=== PATIENT | female | born 1950 | race Caucasian/White ===

== ENCOUNTER 2016-12-04 20:06 | Inpatient (IN) | payer MEDICARE, MEDICAID ==
[~2016-12-04] VITALS: Ht 165.1 cm; Wt 100.0 kg
--- NOTE | ~2016-12-04 | HEMODYNAMI ---
PATIENT:KALEB TERRAZAS MEDICAL RECORD: [id number] : 48 LOCATION:[facility] D.2102 ADMISSION DATE: 12/04/16 Generatedon:12/06/201613:09 Patient name: KALEB TERRAZAS Patient #: [id number] SSN: : 1950 Date of study: 12/06/2016 Page: Of Hemodynamic Procedure Report Patient Data Patient Demographics Procedure consent was obtained First Name: KALEB Gender: Female Last Name: NINI : 1950 Patient #: [id number] Age: 66 year(s) Race: Additional ID: [id number] Contact details [address]: [address] [place] [address] State: [place] City: [place] Zip code: [address] Past Medical History History of disease Date Diagnosis Comments Diabetes Allergies Allergen Reaction Date Comments Reported Penicillins 07/21/2015 Other allergy 07/21/2015 Carisoprodol, oxycodone, acetaminophen Morphine 07/21/2015 Admission Admission Data Admission Date: 12/04/2016 Admission Time: 22:35 Room #: D.2102 Lab Results Lab Result Date: 12/06/2016 Lab Result Time: 0:00 Biochemistry Name Units Result Min Max BUN mg/dl 13 --(--*-)-- 7 18 Creatinine mg/dl 0.9 --(-*--)-- 0.6 1.3 CBC Name Units Result Min Max Hemoglobin g/dl 13.3 -*(----)-- 13.5 17.5 Procedure Procedure Types Cath Procedure Diagnostic Procedure LHC LHC w/Coronaries PCI Procedure Coronary Stent Initial Miscellaneous Procedures Moderate Sedation up to 15 minutes Peripheral Cath Diagnostic Procedure Cath Peripheral Four Vessel Arteriogram Procedure Description Procedure Date Procedure Date: 12/06/2016 Procedure Start Time: 12:50 Procedure End Time: 13:08 Procedure Staff Name Function Alan Brown MD Performing Physician Rosalia Sevilla RN Nurse Dennis Camacho RT Monitor Florin Jaquez RT Scrub Procedure Data Cath Procedure Fluoroscopy Diagnostic fluoroscopy Total fluoroscopy Time: 2.3 time: 2.3 min min Diagnostic fluoroscopy Total fluoroscopy dose: 623 dose: 623 mGy mGy Contrast Material Contrast Material Type Amount (ml) Isovue 300 123 Entry Location Entry Primary Successful Side Size Upsize Upsize Entry Closure Succes sful Closure Location (Fr) 1 (Fr) 2 (Fr) Remarks Device Remarks Femoral Right 5 Fr 6 Fr Exoseal artery Short Estimated blood loss: 10 ml Diagnostic catheters Device Type Used For End Catheter Placement Cordis 5Fr Pigtail Procedure Catheter (MP) Cordis 5Fr JL 4.0 Procedure Catheter (MP) Cordis 5Fr 3DRC Catheter Procedure (MP) Procedure Complications No complications Procedure Medications Medication Administration Route Dosage Oxygen NC 2 l/min Heparin Flush Bag added to field 2 bags (1000units/500ml NS) Lidocaine 2% added to field 20 Versed I.V. 1 mg Fentanyl I.V. 50 mcg Versed I.V. 1 mg Fentanyl I.V. 50 mcg Heparin Bolus I.V. 4000 units Integrilin (Bolus I.V. 9 ml 2mg/ml) Versed I.V. 0.5 mg Fentanyl I.V. 50 mcg Plavix P.O. 600 mg Hemodynamics Rest HGB: 13.3 (g/dl) Heart Rate: 0 (bpm) Pressure Samples Time Site Value (mmHg) Purpose Heart Use Rate(bpm) 12:52 AO 93/78(85) Snapshot 82 Snapshots Pre Cath Intra NCS Post Cath Vital Signs Time Heart Resp SPO2 NIBP (mmHg) Rhythm Pain Sedation Rate (ipm) (%) Status Level (bpm) 12:24:10 65 16 98 130/70(104) NSR 0 (11) 10(A) , No pain 12:28:30 67 16 97 125/69(96) NSR 0 (11) 10(A) , No pain 12:32:52 76 16 96 123/69(95) NSR 0 (11) 10(A) , No pain 12:37:16 77 16 96 122/63(100) NSR 0 (11) 10(A) , No pain 12:41:28 77 17 95 131/84(108) NSR 0 (11) 10(A) , No pain 12:45:44 76 16 96 119/87(113) NSR 0 (11) 10(A) , No pain 12:49:56 79 15 96 125/97(118) NSR 0 (11) 10(A) , No pain 12:54:10 76 16 96 136/93(104) NSR 0 (11) 9(A) , No pain 12:58:30 82 16 96 134/91(101) NSR 0 (11) 9(A) , No pain 13:02:55 82 16 96 128/73(100) NSR 0 (11) 9(A) , No pain 13:05:26 80 14 96 126/66(95) NSR 0 (11) 10(A) , No pain Medications Time Medication Route Dose Verified Delivered Reason Notes Effectiveness by by 12:25:09 Oxygen NC 2 Alan Rosalia Per physician l/min Stephanie Sevilla RN 12:25:20 Heparin Flush added 2 Alan Alan used for Bag to bags Stephanie Brown MD procedure (1000units/500ml field NS) 12:25:26 Lidocaine 2% added 20ml Alan Alan used for to vial Stephanie Brown MD procedure field 12:48:39 Versed I.V. 1 mg Alan Rosalia for sedation Stephanie Sevilla RN 12:48:55 Fentanyl I.V. 50 Alan Rosalia for sedation mcg Stephanie Sevilla RN 12:50:42 Versed I.V. 1 mg Alan Rosalia for sedation Stephanie Sevilla RN 12:50:45 Fentanyl I.V. 50 Alan Rosalia for sedation mcg Stephanie Sevilla RN 12:53:31 Versed I.V. 0.5 Alan Rosalia for sedation mg Stephanie Sevilla RN 12:53:47 Fentanyl I.V. 50 Alan Rosalia for sedation mcg Stephanie Sevilla RN 12:56:43 Heparin Bolus I.V. 4000 Alan Rosalia for dose units Stephanie Sevilla RN anticoagulation verified wt dr brown 12:58:33 Integrilin I.V. 9 ml Alan Rosalia for wasted (Bolus 2mg/ml) Stephanie Sevilla RN antiplatelet 1ml therapy 13:08:00 Plavix P.O. 600 Alan Rosalia for mg Stephanie Sevilla RN antiplatelet therapy Procedure Log Time Note 11:50:41 Florin Jaquez RT(R) sent for patient. Start room use. 12:02:42 Time tracking: Regular hours 12:02:46 Plan of Care:Hemodynamics will remain stable., Cardiac rhythm will remain stable., Comfort level will be maintained., Respiratory function will remain adequate., Patient/ family verbilizes understanding of procedure., Procedure tolerated without complication., Recovers from procedure without complications.. 12:18:39 Patient received from PCU to CCL 2 Alert and oriented. Tansferred to table in Supine position. 12:18:45 Warm blankets applied, and butch hugger turned on for patient comfort. 12:18:45 Correct patient and procedure confirmed by team. 12:18:46 Signed procedure consent form obtained from patient. 12:18:47 ECG and BP/O2 sat monitors applied to patient. 12:22:50 Vital chart was started 12:22:51 Baseline sample Acquired. 12:22:56 Rhythm: sinus rhythm 12:22:58 Full Disclosure recording started 12:25:09 Oxygen 2 l/min NC was administered by Rosalia Sevilla RN; Per physician; 12:25:20 Heparin Flush Bag (1000units/500ml NS) 2 bags added to field was administered by Alan Brown MD; used for procedure; 12:25:26 Lidocaine 2% 20ml vial added to field was administered by Alan Brown MD; used for procedure; 12:27:22 Baseline sample Acquired. 12:27:30 H&P Date Dictated: 12/04/2016 Within 30 days and on chart., ER History on chart.. 12:27:31 Pre-procedure instructions explained to patient. 12:27:31 Pre-op teaching completed and patient verbalized understanding. 12:27:32 Family in waiting room. 12:27:33 Patient NPO since Midnight. 12:28:20 Is the patient allergic to Iodine/contrast media? No. 12:28:29 Is patient on blood thinner?No 12:28:31 Patient diabetic? Yes. 12:28:32 If diabetic: On Metformin? No 12:28:36 Patient not . Patient is over age 55. 12:28:39 Previous problem with sedation/anesthesia? Yes lowers blood pressure 12:28:43 Snore? Yes 12:28:44 Sleep apnea? Yes 12:28:46 Deviated septum? No 12:28:46 Opens mouth fully? Yes 12:28:47 Sticks out tongue? Yes 12:28:50 Airway obstruction? No ? 12:28:53 Dentures? No ? 12:28:56 Pre procedure: right dorsailis pedis pulse 1+ Palpable, but thready & weak; easily obliterated 12:28:58 Patient pain scale 0/10 ?. 12:29:22 IV patent on arrival in right hand with 0.9% NaCl at [facility]. 12:29:24 Lab results completed and on chart. 12::27 Right groin area was prepped with chlora-prep and draped in sterile fashion 12::28 Pt's abdomen was taped back for access to right groin. When taping abdomen back it was noticed the pt had a small skin tear. As the pt was being prepped and scrubbed, she complained about stinging and burning at site of skin tear on right groin. 12:29:33 Alarms reviewed by R. N. 12:29:33 Sharps counted by scrub and verified by R.N. 12:29:37 Use device set Femoral Dx 12:29:38 Tegaderm 4 x 4 opened to sterile field. 12:29:39 Acist Hand Control opened to sterile field. 12:29:39 Acist Manifold opened to sterile field. 12:29:40 Acist Syringe opened to sterile field. 12:29:41 Bag Decanter opened to sterile field. 12:29:41 Medline Cath Pack opened to sterile field. 12:29:41 Terumo 5Fr Sunflower Sheath opened to sterile field. 12:29:42 St Sonny 260cm J .035 wire opened to sterile field. 12:29:43 Diagnostic Infinity 5Fr Multipack catheter opened to sterile field. 12:30:27 Lab Result : BUN 13 mg/dl 12:: Lab Result : Hemoglobin 13.3 g/dl 12:30:27 Lab Result : Creatinine 0.9 mg/dl 12:34:09 Physician paged 12:34:54 Zero performed for pressure channel P1 12:48:04 --------ALL STOP TIME OUT------ 12:48:05 Final Timeout: patient, procedure, and site verified with staff and physician. All members of the team are in agreement. 12:48:06 Right groin site verified by team. 12:48:11 Physical assessment completed. ASA score P 2 - A patient with mild systemic disease as per Alan Brown MD. 12:48:14 Sedation plan: IV Moderate Sedation Versed, Fentanyl 12:48:39 Versed 1 mg I.V. was administered by Rosalia Sevilla RN; for sedation; 12:48:55 Fentanyl 50 mcg I.V. was administered by Rosalia Sevilla RN; for sedation; 12:50:01 Procedure started. 12:50:10 Local anesthetic to right femoral artery with Lidocaine 2% by Alan Brown MD.INITIAL ACCESS ONLY 12:50:42 Versed 1 mg I.V. was administered by Rosalia Sevilla RN; for sedation; 12:50:43 A 5 Fr sheath was inserted into the Right Femoral artery 12:50:45 Fentanyl 50 mcg I.V. was administered by Rosalia Sevilla RN; for sedation; 12:50:52 A Cordis 5Fr Pigtail Catheter (MP) was advanced over the wire and used for Procedure. 12:51:24 LV angiography performed. 12:51:25 LV gram done using BARR 12:51:31 EF : 60 % 12:51:34 Injector settings: Ml/sec: 10, Volume: 20, 12:51:37 Catheter removed. 12:51:44 A Cordis 5Fr JL 4.0 Catheter (MP) was advanced over the wire and used for Procedure. 12:52:19 LCA angiography performed. 12:53:31 Versed 0.5 mg I.V. was administered by Rosalia Sevilla RN; for sedation; 12:53:47 Fentanyl 50 mcg I.V. was administered by Rosalia Sevilla RN; for sedation; 12:54:04 Catheter removed. 12:54:20 A Cordis 5Fr 3DRC Catheter (MP) was advanced over the wire and used for Procedure. 12:54:23 RCA angiography performed. 12:54:33 Right subclavian angiography performed 12:54:35 Left carotid angiography performed. 12:54:39 Left subclavian angiography performed 12:55:09 Seesawtronic Launcher 6Fr 3DRC SH guide catheter opened to sterile field. 12:55:10 Terumo 6Fr Sunflower Sheath opened to sterile field. 12:55:10 OX FACTORY Whisper J 300cm 0.014 guide wire opened to sterile field. 12:55:11 USB Promos BasixCompak Inflation Kit opened to sterile field. 12:55:19 Catheter removed. 12:55:26 Sheath upsized to a 6 Fr Short. 12:55:34 ACC PCI Site: pRCA has 80% stenosis. 12:55:39 ACC Pre-intervention VELIA Flow is 3. 12:56:43 Heparin Bolus 4000 units I.V. was administered by Rosalia Sevilla RN; for anticoagulation; dose verified wtih dr brown 12:56:59 6 Fr 3DRC SH guide catheter was inserted over the wire 12:57:23 Whisper wire advanced. 12:58:01 Wire advanced across lesion. 12:58:33 Integrilin (Bolus 2mg/ml) 9 ml I.V. was administered by Rosalia Sevilla RN; for antiplatelet therapy; wasted 1ml 12:58:36 Inflation Number: 1 A Seesawtronic Resolute 3.0 X 15 stent was prepped and advanced across the Prox RCA. The stent was deployed at 11 NICOLE for 0:10 (min:sec). 12:59:27 ACC Post-intervention VELIA Flow is 3. 12:59:29 Stent catheter was removed intact over wire. 12:59:29 Wire removed. 12:59:30 Guide catheter removed. 12:59:39 Cordis 6Fr Exoseal opened to sterile field. 13:00:07 Sheath removed intact; hemostasis achieved with Exoseal to the Right Femoral artery. 13:00:08 Procedure ended.(Physican Out) 13:04:52 Fluoroscopy time 02.30 minutes. 13:05:04 Flurop Dose total: 623 13:05:04 Fluoroscopy dose: 623 mGy 13:05:08 Contrast amount:Isovue 300 123ml. 13:05:10 Sharps counted by scrub and verified by R.N. 13:05:11 Insertion/operative site no bleeding no hematoma. 13:05:16 Post-op/insertion site Right Femoral artery dressed using a 4 x 4 and Tegaderm. 13:05:46 Before tegaderm was placed, a 4x4 was placed to cover skin tear. 13:05:48 Post Procedure Pulses reassessed and unchanged 13:05:51 Post-procedure physical assessment completed. ASA score P 2 - A patient with mild systemic disease as per Alan Brown MD. 13:05:53 Post procedure rhythm: unchanged. 13:05:55 Estimated blood loss: 10 ml 13:05:57 Post procedure instruction explained to patient.Patient verbalizes understanding. 13:05:57 Patient needs reinforcement of post procedure teaching. 13:06:08 Procedure type changed to Cath procedure, Diagnostic procedure, LHC, LHC w/Coronaries, PCI procedure, Coronary Stent Initial, Miscellaneous Procedures, Moderate Sedation up to 15 minutes, Peripheral Cath Diagnostic Procedure, Cath Peripheral, Four Vessel Arteriogram 13:06:11 Procedure Complication : No complications 13:06:42 Procedure and supply charges have been captured, reviewed, submitted and are correct. 13:08:00 Plavix 600 mg P.O. was administered by Rosalia Sevilla RN; for antiplatelet therapy; 13:08:27 Vital chart was stopped 13:08:28 See physician's report for complete and final results. 13:08:35 Report given to PCU. 13:08:39 Patient transfered to PCU with Bed. 13:08:40 Procedure ended. 13:08:40 Full Disclosure recording stopped 13:08:47 End room use (Document Last) Intervention Summary Intervention Notes Time ActionType Lesion and Equipment Action# Pressure Duration Attributes Used 12:58:36 Place stent Prox RCA Medtronic 1 11 00:10 Resolute 3.0 X 15 stent Device Usage Item Name Manufacture Quantity Catalog Hospital Part Current Minimal Lot# / Number Charge Number Stock Stock Serial# Code Tegaderm 4 1 1626W [id number] [id number] 197950 5 x 4 Acist Hand Acist 1 62247 035360 573268 712830 5 Control Medical Systems Inc Acist Acist 1 34917 797892 144022 202875 5 Manifold Medical Systems Inc Acist Acist 1 11141 266578 309249 894517 20 Syringe Medical Systems Inc Bag Microtek 1 2002S 972573 60448 402342 5 Decanter Medical Inc. Medline Cardinal 1 [id number] 005447 66190 038090 5 Solarmass Terumo 5Fr Terumo 1 OPV040 988346 207184 251861 [address] Son[address] St Sonny 1 700696 132595 595218 230497 30 260cm J .035 wire Diagnostic Cardinal 1 [id number] 569296 76206 332357 30 Infinity Health 5Fr Multipack catheter Cordis 5Fr Cardinal 1 236394 5 Pigtail Health Catheter (MP) Cordis 5Fr Cardinal 1 618944 5 JL 4.0 Health Catheter (MP) Cordis 5Fr Cardinal 1 805316 5 3DRC Health Catheter (MP) Medtronic Medtronic 1 [id number] 339214 623503 152529 1 Launcher 6Fr 3DRC SH guide catheter Terumo 6Fr Terumo 1 [id number] 054647 366269 378819 40 Sunflower Sheath Gregory Gregory 1 [id number] 650360 096197 780668 5 Whisper J Vascular 300cm [address] [facility] 1 [id number] 458395 619787 913261 15 [facility] Medical Inflation Kit Medtronic Medtronic 1 [id number] 258787 385772 3 [id number] Resolute 3.0 X 15 stent Cordis 6Fr Cardinal 1 EX600 919017 927798 012780 10 BlastRoots Signature Audit Hamer Stage Time Signature Unsigned Intra-Procedure 12/06/2016 Dennis Camacho 1:09:08 PM RT(R) Signatures Monitor : Dennis Camacho RT Signature : Date : Time : [address] [place] [address]
[~2016-12-04 20:06] MED LIST: ALLEGRA-D1 TAB.SR1; BAYER CHEWABLE81 MG PO; FLEXERIL10 MG PO; JANUVIA100 MG PO; METAMUCIL FIB1 WAFER PO; MIRALAX17 GM PO; NORCO 10/325 TA1 TA1 PO; PLAVIX75 MG PO; PROTONIX20 MG PO; REGLAN5 MG PO; VICODIN 5/500 T1 TAB PO; VICTOZA0.6 MG/0.1 SQ; XANAX0.25 MG PO
[2016-12-04 20:47] LABS: BASOPHILS 0.2 % (0-2); EOSINOPHILS 1.5 % (0-7); HEMATOCRIT 42.6 % (36.0-48.0); HEMOGLOBIN 13.6 g/dL (12-16); IMMATURE GRANULOCYTES 0.5 % (0-5); LYMPHOCYTES 27.1 % (15-50); MCH 29.6 pg (26.0-34.0); MCHC 31.9 g/dL (31.0-37.0); MCV 92.8 fL (80.0-100.0); MEAN PLATELET VOLUME 10.9 fL (7.4-10.4); MONOCYTES 4.9 % (2-11); NEUTROPHILS 65.8 % (40-80); PLATELET COUNT 311 10x3/uL (130-400); RBC 4.59 10x6/uL (4.00-5.40); RDW 13.7 % (11.5-14.5); WBC 10.3 10x3/uL (4.8-10.8)
[2016-12-04 20:59] LABS: ALBUMIN 3.4 g/dL (3.4-5.0); ALKALINE PHOSPHATASE 112 U/L (46-116); ALT (SGPT) 15 U/L (10-68); BILIRUBIN - TOTAL 0.11 mg/dL (0.2-1.3); CALC OSMOLALITY 283 mosm/kg (275-300); CALCIUM 8.7 mg/dL (8.5-10.1); CARBON DIOXIDE 22.7 mmol/L (21.0-32.0); CHLORIDE - SERUM 105 mmol/L (98-107); CREATININE - SERUM 0.8 mg/dL (0.6-1.3); GLUCOSE 164 mg/dL (74-106); PROTEIN - SERUM 7.1 g/dL (6.4-8.2); SODIUM 140 mmol/L (136-145); UREA NITROGEN 15 mg/dL (7-18); eGFR NON AFRICAN AMERICAN 76 mL/min (90-120)
[2016-12-04 21:02] LABS: APPEARANCE CLEAR (CLEAR); BILIRUBIN NEGATIVE (NEGATIVE); COLOR YELLOW (YELLOW); GLUCOSE 100 mg/dL (NEGATIVE); KETONE NEGATIVE (NEGATIVE); LEUKOCYTE ESTERASE NEGATIVE (NEGATIVE); NITRITE NEGATIVE (NEGATIVE); PROTEIN NEGATIVE (NEGATIVE); SPECIFIC GRAVITY 1.015 (1.005-1.020); UROBILINOGEN NORMAL (NORMAL)
[2016-12-04 21:03] LABS: CREATINE KINASE 45 UL (21-215)
[2016-12-04 21:05] LABS: TROPONIN-I < 0.017 ng/mL (0.000-0.060)
[2016-12-04 23:31] VITALS: BP 140/63; Ht 165.1 cm; Wt 100.0 kg
[2016-12-04] MEDS ORDERED: PROTONIX40 MG PO (23:45)
[2016-12-04] MEDS ORDERED: PROBIOTIC1 EAC1 PO (23:47)
[2016-12-05 04:00] VITALS: BP 119/61
[2016-12-05] MEDS ORDERED: ACETAMINOPHEN325 MG PO (05:37)
[2016-12-05 05:45] LABS: BASOPHILS 0.2 % (0-2); EOSINOPHILS 2.1 % (0-7); HEMOGLOBIN 13.4 g/dL (12-16); IMMATURE GRANULOCYTES 0.2 % (0-5); LYMPHOCYTES 36.8 % (15-50); MCH 29.2 pg (26.0-34.0); MCHC 31.9 g/dL (31.0-37.0); MCV 91.5 fL (80.0-100.0); MEAN PLATELET VOLUME 10.7 fL (7.4-10.4); MONOCYTES 5.4 % (2-11); NEUTROPHILS 55.3 % (40-80); PLATELET COUNT 324 10x3/uL (130-400); RBC 4.59 10x6/uL (4.00-5.40); RDW 13.5 % (11.5-14.5); WBC 9.8 10x3/uL (4.8-10.8)
[2016-12-05 06:07] LABS: CALC OSMOLALITY 282 mosm/kg (275-300); CALCIUM 8.7 mg/dL (8.5-10.1); CARBON DIOXIDE 25.9 mmol/L (21.0-32.0); CHLORIDE - SERUM 106 mmol/L (98-107); CREATINE KINASE 42 UL (21-215); CREATININE - SERUM 0.8 mg/dL (0.6-1.3); GLUCOSE 135 mg/dL (74-106); POTASSIUM - SERUM 3.7 mmol/L (3.5-5.1); SODIUM 141 mmol/L (136-145); TROPONIN-I < 0.017 ng/mL (0.000-0.060); UREA NITROGEN 13 mg/dL (7-18); eGFR NON AFRICAN AMERICAN 76 mL/min (90-120)
[2016-12-05 09:30] VITALS: BP 134/64
[2016-12-05 12:23] VITALS: BP 144/68
[2016-12-05 14:12] LABS: CKMB 0.4 U/L (0.0-3.6); CREATINE KINASE 36 UL (21-215); TROPONIN-I < 0.017 ng/mL (0.000-0.060)
[2016-12-05 17:06] VITALS: BP 139/59
[2016-12-05 19:36] LABS: CKMB 0.4 U/L (0.0-3.6); CREATINE KINASE 39 UL (21-215)
[2016-12-05 19:39] LABS: TROPONIN-I < 0.017 ng/mL (0.000-0.060)
[2016-12-05 20:33] VITALS: BP 142/71
[2016-12-06 01:51] VITALS: BP 136/67
[2016-12-06 02:16] LABS: CKMB 0.3 U/L (0.0-3.6); CREATINE KINASE 35 UL (21-215); TROPONIN-I < 0.017 ng/mL (0.000-0.060)
[2016-12-06 05:17] LABS: BASOPHILS 0.4 % (0-2); EOSINOPHILS 2.1 % (0-7); HEMATOCRIT 42.2 % (36.0-48.0); HEMOGLOBIN 13.3 g/dL (12-16); IMMATURE GRANULOCYTES 0.4 % (0-5); LYMPHOCYTES 43.7 % (15-50); MCH 29.2 pg (26.0-34.0); MCHC 31.5 g/dL (31.0-37.0); MCV 92.7 fL (80.0-100.0); MEAN PLATELET VOLUME 11.3 fL (7.4-10.4); MONOCYTES 5.8 % (2-11); NEUTROPHILS 47.6 % (40-80); PLATELET COUNT 305 10x3/uL (130-400); RBC 4.55 10x6/uL (4.00-5.40); RDW 13.6 % (11.5-14.5); WBC 8.2 10x3/uL (4.8-10.8)
[2016-12-06 05:24] LABS: ANION GAP 13.7 mmol/L (8-16); CALCIUM 8.7 mg/dL (8.5-10.1); CARBON DIOXIDE 25.9 mmol/L (21.0-32.0); CREATININE - SERUM 0.9 mg/dL (0.6-1.3); POTASSIUM - SERUM 3.6 mmol/L (3.5-5.1)
[2016-12-06 05:48] VITALS: BP 133/70
[2016-12-06 08:00] VITALS: BP 139/71
[2016-12-06 12:00] VITALS: BP 116/56
[2016-12-06 16:00] VITALS: BP 154/78
[2016-12-06] MEDS ORDERED: PLAVIX75 MG PO (16:58)
--- NOTE | 2016-12-07 11:31 | OP ---
PATIENT NAME: KALEB TERRAZAS MEDICAL RECORD: [id number] :48 LOCATION:D.M2 D.2102 ADMISSION DATE:12/04/16 SURGEON: BERNARDA NASSAR MD DATE OF OPERATION: 12/06/2016 PROCEDURES: 1. PTCA stent RCA. 2. Left heart catheterization. 3. Selective coronary angiography. 4. Left ventriculogram. 5. Four-vessel carotid and vertebral angiography. INDICATIONS: Angina, coronary artery disease, syncope. PROCEDURE IN DETAIL: After informed consent was obtained and after detailed explanation of risks, benefits as well as alternative therapies, the patient elected to proceed with angiogram and angioplasty. The right femoral area was prepped and draped in normal sterile fashion. The right femoral artery was cannulated via modified Seldinger technique with placement of 6-Prydeinig sheath. All catheters exchanged through this sheath. FINDINGS: There was subselection of each subclavian as well as the left carotid. RIGHT SIDE: The common internal and external carotids have mild plaquing, no flow-limiting stenosis. Vertebral arteries devoid of disease. LEFT SYSTEM: The common internal and external carotids have mild plaquing, no flow-limiting stenosis. Vertebral arteries devoid of disease. Left ventriculogram was performed in standard 30-degree BARR view, reveals good cardiac wall motion throughout all segments. Overall ejection fraction is 60%. SELECTIVE CORONARY ANGIOGRAPHY. 1. Left main showed no significant angiographic disease. 2. Left anterior descending has previously placed stent that is widely patent with no significant restenosis. No disease elsewise throughout the LAD or its branches. 3. Left circumflex has mild irregularities, but no flow-limiting stenosis. 4. Right coronary has 80% stenosis with pressure damping at the ostium. PTCA STENT OF THE RIGHT CORONARY OSTIUM: The stent used is a 3.0 x 15 mm Resolute. Result was 0% residual stenosis. OVERALL IMPRESSION: Successful percutaneous transluminal coronary angioplasty stent of the right coronary artery going from greater than 80% initial stenosis with severe pressure damping to 0% residual stenosis. TRANSINT:[id number] Voice Confirmation ID: [id number] DOCUMENT ID: [id number] OPERATIVE REPORT [id number] KALEB TERRAZAS BERNARDA NASSAR MD at 1134 CC: [id number] DICTATION DATE: 12/06/16 1307 SUPPLY CHAIN DEVELOPMENT MANAGER: 12/06/16 1700 DIS IN 12/06/16 [facility] [address] [facility] [place] [address]
--- NOTE | 2016-12-07 11:31 | EC ---
PATIENT:KALEB TERRAZAS DATE OF SERVICE: 12/04/16 SEX: F MEDICAL RECORD: [id number] DATE OF : [birth year] LOCATION:D.M2 D.210 AGE OF PATIENT: 66 ADMISSION DATE: 12/04/16 REFERRING PHYSICIAN: INTERPRETING PHYSICIAN: BERNARDA NASSAR MD ECHOCARDIOGRAM REPORT ECHO CHARGES 4 ECHO COMPLETE CLINICAL DIAGNOSIS: SYNCOPE ECHOCARDIOGRAPHIC MEASUREMENTS (adult normal given) AC root (d.<3.7cm) 3.5 LV Septum d (<1.2 cm> 1.4 Valve Excursion 1.8 LV Septum (systole) 1.7 Left Atria (s.<4.0cm> 3.4 LVPW d(<1.2cm) 1.5 RV (d.<2.3cm) 4.5 LVPW (sytole) 1.7 LV diastole(<5.6CM) 4. MV E-F(>70mm/sec) LV systole 2.7 LVOT Diameter 1.8 MV exc.(>10mm) 1.6 Est.ejection fraction (50-75%) Pericardial Effusion N DOPPLER: LVIT A 80.0 E 60.0 LA RVSP 28 LVOT 92 AOP1/2T Asc. Ao 159 RVOT 92 RA PA 109 AV Gradient Peak 10.17 AV Mean 4.64 AV Area 2.0 MV Gradient Peak 4.74 MV Mean 1.79 MV Area COMMENTS: Sand Caster: Oscar SAN Skip Hoist Operator:Elizabeth Carl TAPE# PACS DATE OF SERVICE: 12/06/2016 Echocardiogram FINDINGS: 1. Left ventricular chamber size is within normal limits. Left ventricular systolic function is normal. Overall ejection fraction estimated at 55%. 2. Left atrium is within normal limits at 3.4 cm. Right atrium and right ventricular chamber sizes are mildly dilated. 3. Valvular structures have normal structure and motion. ECHOCARDIOGRAM REPORT [id number] KALEB TERRAZAS 4. Doppler interrogation reveals mild mitral regurgitation, mild tricuspid regurgitation. No other valvular insufficiency or stenosis. Pulmonary systolic pressure is normal estimated at 28 mmHg. 5. No evidence of pericardial effusion or left ventricular thrombus. TRANSINT:[id number] Voice Confirmation ID: [id number] DOCUMENT ID: [id number] BERNARDA NASSAR MD at 6567 CC: [id number] DICTATION DATE: 12/06/16 1241 INSEMINATION WORKER: 12/06/16 1649 DIS IN 12/06/16 [facility] [address] [id number]
== END 2016-12-06 18:41 | disposition home or self-care (01) | DRG 247 ==
LOC: D.ER 20:06 → D.M2 22:35 → OBSVTIME 22:35 → D.M2 12-06 18:41
PROVIDERS: Family Medicine; Internal Medicine Interventional Cardiology; ADMIT Family Medicine
PROC: B2151ZZ Fluoroscopy of Left Heart using Low Osmolar Contrast (ICD-10-PCS; 2016-12-06)
PROC: B3181ZZ Fluoroscopy of Bilateral Internal Carotid Arteries using Low Osmolar Contrast (ICD-10-PCS; 2016-12-06)
PROC: B31G1ZZ Fluoroscopy of Bilateral Vertebral Arteries using Low Osmolar Contrast (ICD-10-PCS; 2016-12-06)
PROC: 027034Z Dilation of Coronary Artery, One Artery with Drug-eluting Intraluminal Device, Percutaneous Approach (ICD-10-PCS; principal; 2016-12-06 08:00)
PROC: 4A023N7 Measurement of Cardiac Sampling and Pressure, Left Heart, Percutaneous Approach (ICD-10-PCS; 2016-12-06 08:00)
PROC: B2111ZZ Fluoroscopy of Multiple Coronary Arteries using Low Osmolar Contrast (ICD-10-PCS; 2016-12-06 08:00)
DX: I25.119 Atherosclerotic heart disease of native coronary artery with unspecified angina pectoris (principal); F17.203 Nicotine dependence unspecified, with withdrawal; R55 Syncope and collapse; E11.65 Type 2 diabetes mellitus with hyperglycemia; K21.9 Gastro-esophageal reflux disease without esophagitis; Z95.5 Presence of coronary angioplasty implant and graft

== ENCOUNTER 2017-06-18 23:12 | Emergency (ER) | payer MEDICARE, MEDICAID ==
[~2017-06-18 23:12] MED LIST changes: +ACETAMINOPHEN325 MG PO; +PROBIOTIC1 EAC1 PO; +PROTONIX40 MG PO
[2017-06-18 23:59] LABS: BASOPHILS 0.1 % (0-2); EOSINOPHILS 0.9 % (0-7); HEMATOCRIT 43.7 % (36.0-48.0); HEMOGLOBIN 14.4 g/dL (12-16); IMMATURE GRANULOCYTES 0.2 % (0-5); LYMPHOCYTES 14.1 % (15-50); MCH 29.6 pg (26.0-34.0); MCV 89.7 fL (80.0-100.0); MEAN PLATELET VOLUME 10.7 fL (7.4-10.4); MONOCYTES 6.6 % (2-11); NEUTROPHILS 78.1 % (40-80); PLATELET COUNT 298 10x3/uL (130-400); RBC 4.87 10x6/uL (4.00-5.40); RDW 13.8 % (11.5-14.5); WBC 14.5 10x3/uL (4.8-10.8)
[2017-06-19 00:16] LABS: ALBUMIN 3.7 g/dL (3.4-5.0); ALKALINE PHOSPHATASE 101 U/L (46-116); ALT (SGPT) 12 U/L (10-68); BILIRUBIN - TOTAL 0.14 mg/dL (0.2-1.3); CALC OSMOLALITY 281 mosm/kg (275-300); CALCIUM 8.7 mg/dL (8.5-10.1); CARBON DIOXIDE 21.3 mmol/L (21.0-32.0); CHLORIDE - SERUM 103 mmol/L (98-107); CREATININE - SERUM 0.9 mg/dL (0.6-1.3); GLUCOSE 180 mg/dL (74-106); PROTEIN - SERUM 7.7 g/dL (6.4-8.2); SODIUM 138 mmol/L (136-145); UREA NITROGEN 16 mg/dL (7-18); eGFR NON AFRICAN AMERICAN 66 mL/min (90-120)
[2017-06-19 00:28] LABS: CHOL - HDL RATIO 4.4 ratio (2.3-4.1); CHOLESTEROL, TOTAL 226 mg/dL (0-200); CKMB 0.4 U/L (0.0-3.6); CREATINE KINASE 52 UL (21-215); HDL CHOLESTEROL 52 mg/dL (32-96); LDL CHOLESTEROL 150 mg/dL (0-100); LDL-HDL RATIO 2.9 ratio (1.5-3.5); TRIGLYCERIDE 123 mg/dL (30-200)
[2017-06-19 00:31] LABS: TROPONIN-I < 0.017 ng/mL (0.000-0.060)
== END 2017-06-19 02:17 | disposition home or self-care (01) ==
LOC: D.ER 23:12
PROVIDERS: Emergency Medicine
DX: R07.89 Other chest pain (principal); I25.10 Atherosclerotic heart disease of native coronary artery without angina pectoris; E11.9 Type 2 diabetes mellitus without complications; F17.200 Nicotine dependence, unspecified, uncomplicated; I45.10 Unspecified right bundle-branch block

== ENCOUNTER 2018-04-17 19:50 | Inpatient (IN) | payer MEDICARE, MEDICAID ==
[~2018-04-17] VITALS: Ht 165.1 cm; Wt 96.2 kg
--- NOTE | ~2018-04-17 | MORECARE ---
CASE MANAGEMENT DISCHARGE SUMMARY PATIENT: KALEB TERRAZAS UNIT: [id number] ADM DATE: 04/18/18 AGE: 67 : 49 SEX: F ROOM/BED: D.2211 AUTHOR: TARA,DOC PHYSICIAN: REFERRING PHYSICIAN: MAYTE DELGADILLO MD DATE OF SERVICE: 04/23/18 Discharge Plan Patient Name: KALEB TERRAZAS Facility: [facility]:[place] : 1950 Planned Disposition: Home Anticipated Discharge Date: 04/21/18 Discharge Date: 04/21/2018 Expected LOS: 3 Initial Reviewer: [email or web address] Initial Review Date: 04/18/2018 Generated: 04/23/18 12:10 pm Comments DCP- Discharge Planning Updated by [email or web address]: Precious Odom on 04/21/18 2:[address] 1455 LATE ENTRY CM MET WITH THE PATIENT IS HER ROOM IT IS "". CM DISCUSSED DISCHARGE IMM. PATIENT STATED SHE UNDERSTOOD AND SIGNED IMM FORM. HER SISTER IS PROVIDING TRANSPORTATION TO HOME. SHE DECLINES ANY HOME HEALTH. 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 DENIES ANY DME. HAS A SHOWER CHAIR AND SAFETY BARS IN THE SHOWER. HER PCP IS DR WARREN. [facility] - [facility] [address] NO H/H OR COMMUNITY SERVICES. HAS 2 STEPS TO ENTER HER HOME WITH RAILING ON BOTH SIDES OF THE STEP. DENIES ANY NEED. SPOKE WITH PRIMARY NURSE AND CLINICAL COORDINATOR. DCPIA - Discharge Planning Initial Assessment Updated by [email or web address]: Precious Odom on 04/21/18 3:44 pm * Is the patient Alert and Oriented? Yes * How many steps to enter\\exit or inside your home? Two w/ ding * PCP DR Warren * [facility] [address] * Preadmission Environment Home Alone * ADLs Independent * Equipment None * Other Equipment N/A * List name and contact numbers for known caregivers / representatives who currently or will assist patient after discharge: ABIMBOLA DANIELSON- - [phone] * Community resources currently utilized None * Please name any agencies selected above. N/A * Additional services required to return to the preadmission environment? No * Can the patient safely return to the preadmission environment? Yes * Has this patient been hospitalized within the prior 30 days at any hospital? No Coverage Notice Reviewer: [email or web address] David EstradaPrecious Mesa Notice Issued Date-Time: 04/21/2018 15:15 Notice Type: IM Discharge Notice Notice Delivered To: Patient Relationship to Patient: Director Recreation Name: Delivery Method: HAND - Hand Delivered Genie Days: Prior Verbal Notification: Recipient Understood Notice: Yes Recipient Signature: Yes Med Rec Note Co-signed by Attending: Coverage Notice Comment: CM SPOKE WITH THE PATIENT. SHE SAID SHE UNDERSTOOD THE DISCHARGE IMM. SIGNED FORM. COPY TO THE PATIENT. HARD COPY TO THE CHART. Last DP export: 04/21/18 2:55 Patient Name: KALEB TERRAZAS Page [phone] at 1110 All edits/amendments must be made on the electronic document DICTATION DATE: 04/23/18 1110 MUSEUM ARCHIVIST: SHAHEED 04/23/18 1110 RPT#: [id number] DC DATE:04/21/18 STATUS: DIS IN [facility] [address] [place] [address] END OF REPORT
--- NOTE | ~2018-04-17 | MORECARE ---
CASE MANAGEMENT DISCHARGE SUMMARY PATIENT: KALEB TERRAZAS UNIT: [id number] ADM DATE: 04/18/18 AGE: 67 : [birth year] SEX: F ROOM/BED: D.2211 AUTHOR: KATALINA PACHECO PHYSICIAN: REFERRING PHYSICIAN: MAYTE DELGADILLO MD DATE OF SERVICE: 04/21/18 Discharge Plan Patient Name: KALEB TERRAZAS Facility: [facility]:[place] : 1950 Planned Disposition: Home Anticipated Discharge Date: 04/21/18 Discharge Date: Expected LOS: 3 Initial Reviewer: [email or web address] Initial Review Date: 04/18/2018 Generated: 04/21/18 4:42 pm Patient Name: KALEB TERRAZAS Page [phone] at 1542 All edits/amendments must be made on the electronic document DICTATION DATE: 04/21/181541 DATA ANALYST ETL DEVELOPER: SHAHEED 04/21/18 154 RPT#: [id number] DC DATE: STATUS: ADM IN [facility] [address] [place] [address] END OF REPORT
--- NOTE | ~2018-04-17 | MORECARE ---
CASE MANAGEMENT DISCHARGE SUMMARY PATIENT: KALEB TERRAZAS UNIT: [id number] ADM DATE: 04/18/18 AGE: 67 : 49 SEX: F ROOM/BED: D.2211 AUTHOR: TARADOC PHYSICIAN: REFERRING PHYSICIAN: MAYTE DELGADILLO MD DATE OF SERVICE: 04/21/18 Discharge Plan Patient Name: KALEB TERRAZAS Facility: [facility]:[place] : 1950 Planned Disposition: Home Anticipated Discharge Date: 04/21/18 Discharge Date: Expected LOS: 3 Initial Reviewer: [email or web address] Initial Review Date: 04/18/2018 Generated: 04/21/18 4:55 pm Comments DCP- Discharge Planning Updated by [email or web address]: Precious Odom on 04/21/18 2:[address] 1455 LATE ENTRY CM MET WITH THE PATIENT IS HER ROOM IT IS "". CM DISCUSSED DISCHARGE IMM. PATIENT STATED SHE UNDERSTOOD AND SIGNED IMM FORM. HER SISTER IS PROVIDING TRANSPORTATION TO HOME. SHE DECLINES ANY HOME HEALTH. 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 DENIES ANY DME. HAS A SHOWER CHAIR AND SAFETY BARS IN THE SHOWER. HER PCP IS DR WARREN. PHARMACY - [facility] [address] NO H/H OR COMMUNITY SERVICES. HAS 2 STEPS TO ENTER HER HOME WITH RAILING ON BOTH SIDES OF THE STEP. DENIES ANY NEED. SPOKE WITH PRIMARY NURSE AND CLINICAL COORDINATOR. DCPIA - Discharge Planning Initial Assessment Updated by [email or web address]: Precious Odom on 04/21/18 3:44 pm * Is the patient Alert and Oriented? Yes * How many steps to enter\\exit or inside your home? Two w/ ding * PCP DR Warren * Pharmacy [facility] on [address] * Preadmission Environment Home Alone * ADLs Independent * Equipment None * Other Equipment N/A * List name and contact numbers for known caregivers / representatives who currently or will assist patient after discharge: ABIMBOLA CANELA- [phone] * Community resources currently utilized None * Please name any agencies selected above. N/A * Additional services required to return to the preadmission environment? No * Can the patient safely return to the preadmission environment? Yes * Has this patient been hospitalized within the prior 30 days at any hospital? No Coverage Notice Reviewer: [email or web address] David Precious Odom Notice Issued Date-Time: 04/21/2018 15:15 Notice Type: IM Discharge Notice Notice Delivered To: Patient Relationship to Patient: Lead Atg Developer Name: Delivery Method: HAND - Hand Delivered Genie Days: Prior Verbal Notification: Recipient Understood Notice: Yes Recipient Signature: Yes Med Rec Note Co-signed by Attending: Coverage Notice Comment: CM SPOKE WITH THE PATIENT. SHE SAID SHE UNDERSTOOD THE DISCHARGE IMM. SIGNED FORM. COPY TO THE PATIENT. HARD COPY TO THE CHART. Last DP export: 04/21/18 2:49 Patient Name: KALEB TERRAZAS Page [id number] at 1555 All edits/amendments must be made on the electronic document DICTATION DATE: 04/21/18 1550 CELL COVERER: SHAHEED 04/21/18 1550 RPT#: [id number] DC DATE: STATUS: ADM IN [facility] [address] [place] [address] END OF REPORT
--- NOTE | ~2018-04-17 | MORECARE ---
CASE MANAGEMENT DISCHARGE SUMMARY PATIENT: KALEB TERRAZAS UNIT: [id number] ADM DATE: 04/18/18 AGE: 67 : 49 SEX: F ROOM/BED: D.2211 AUTHOR: KATALINA PACHECO PHYSICIAN: REFERRING PHYSICIAN: MAYTE DELGADILLO MD DATE OF SERVICE: 04/21/18 Discharge Plan Patient Name: KALEB TERRAZAS [facility] [facility] 1950 Planned Disposition: Home Anticipated Discharge Date: 04/21/18 Discharge Date: Expected LOS: 3 Initial Reviewer: [email or web address] Initial Review Date: 04/18/2018 Generated: 04/21/18 4:49 pm DCPIA - Discharge Planning Initial Assessment Updated by [email or web address]: Precious Odom on 04/21/18 3:44 pm * Is the patient Alert and Oriented? Yes * How many steps to enter\exit or inside your home? Two w/ ding * PCP DR Warren * Pharmacy [facility] * Preadmission Environment Home Alone * ADLs Independent * Equipment None * Other Equipment N/A * List name and contact numbers for known caregivers / representatives who currently or will assist patient after discharge: [facility] [phone] * Community resources currently utilized None * Please name any agencies selected above. N/A * Additional services required to return to the preadmission environment? No * Can the patient safely return to the preadmission environment? Yes * Has this patient been hospitalized within the prior 30 days at any hospital? No Last DP export: 04/21/18 2:42 Patient Name: KALEB TERRAZAS Page [id number] at 1549 All edits/amendments must be made on the electronic document DICTATION DATE: 04/21/181547 DATA ENTRY REPRESENTATIVE: SHAHEED 04/21/181547 RPT#: [id number] DC DATE: STATUS: ADM IN [facility] [address] [place] [address] END OF REPORT
[2018-04-17] MEDS ORDERED: GLUCOSAMINE HC500 MG PO (19:53)
[2018-04-17 20:40] LABS: HEMATOCRIT 48.2 % (36.0-48.0); HEMOGLOBIN 16.3 g/dL (12-16); MCH 30.9 pg (26.0-34.0); MCHC 33.8 g/dL (31.0-37.0); MCV 91.3 fL (80.0-100.0); MEAN PLATELET VOLUME 11.2 fL (7.4-10.4); PLATELET COUNT 347 10x3/uL (130-400); RBC 5.28 10x6/uL (4.00-5.40); RDW 13.8 % (11.5-14.5); WBC 23.2 10x3/uL (4.8-10.8)
[2018-04-17 20:57] LABS: APTT 25.3 SECONDS (22.8-39.4); INR 1.05 (0.85-1.17); PROTIME 13.3 SECONDS (11.6-15.0)
[2018-04-17 21:00] LABS: ALBUMIN 3.8 g/dL (3.4-5.0); ALKALINE PHOSPHATASE 105 U/L (46-116); ALT (SGPT) 14 U/L (10-68); BILIRUBIN - TOTAL 0.24 mg/dL (0.2-1.3); CALC OSMOLALITY 287 mosm/kg (275-300); CALCIUM 9.1 mg/dL (8.5-10.1); CHLORIDE - SERUM 105 mmol/L (98-107); CKMB 0.5 U/L (0.0-3.6); CREATINE KINASE 58 UL (21-215); GLUCOSE 218 mg/dL (74-106); POTASSIUM - SERUM 4.3 mmol/L (3.5-5.1); PROTEIN - SERUM 8.2 g/dL (6.4-8.2); SODIUM 140 mmol/L (136-145); UREA NITROGEN 19 mg/dL (7-18)
[2018-04-17 21:02] LABS: TROPONIN-I < 0.017 ng/mL (0.000-0.060)
[2018-04-17 21:07] LABS: CREATININE - SERUM 1.1 mg/dL (0.6-1.3); eGFR NON AFRICAN AMERICAN 52 mL/min (90-120)
[2018-04-17 21:36] LABS: LYMPHOCYTES 12 % (15-50); MONOCYTES 2 % (2-11); NEUTROPHILS 83 % (40-80); PLATELET ESTIMATE NORMAL
[2018-04-17 22:08] LABS: APPEARANCE CLEAR (CLEAR); BACTERIA NONE SEEN /hpf (NONE SEEN); BILIRUBIN NEGATIVE (NEGATIVE); COLOR YELLOW (YELLOW); EPITHELIAL CELLS NSEEN /hpf (0-5); GLUCOSE 1000 mg/dL (NEGATIVE); KETONE NEGATIVE (NEGATIVE); NITRITE NEGATIVE (NEGATIVE); PROTEIN NEGATIVE (NEGATIVE); RED CELLS - URINE NONE SEEN /hpf (0-5); SPECIFIC GRAVITY 1.015 (1.005-1.020); UROBILINOGEN NORMAL (NORMAL); WHITE CELLS - URINE NSEEN /hpf (0-5)
[2018-04-17 23:20] VITALS: BP 138/77
[2018-04-18 05:08] VITALS: BP 127/60; BMI 35.3
[2018-04-18 06:08] LABS: BASOPHILS 0.1 % (0-2); EOSINOPHILS 0.1 % (0-7); HEMATOCRIT 46.8 % (36.0-48.0); HEMOGLOBIN 15.3 g/dL (12-16); IMMATURE GRANULOCYTES 0.3 % (0-5); LYMPHOCYTES 4.3 % (15-50); MCH 30.4 pg (26.0-34.0); MCHC 32.7 g/dL (31.0-37.0); MEAN PLATELET VOLUME 11.3 fL (7.4-10.4); MONOCYTES 2.8 % (2-11); NEUTROPHILS 92.4 % (40-80); PLATELET COUNT 297 10x3/uL (130-400); RBC 5.03 10x6/uL (4.00-5.40)
[2018-04-18 06:26] LABS: WBC 15.1 10x3/uL (4.8-10.8)
[2018-04-18 06:39] LABS: ALBUMIN 3.2 g/dL (3.4-5.0); BILIRUBIN - TOTAL 0.22 mg/dL (0.2-1.3); CALCIUM 8.2 mg/dL (8.5-10.1); CARBON DIOXIDE 15.2 mmol/L (21.0-32.0); CREATININE - SERUM 0.9 mg/dL (0.6-1.3); POTASSIUM - SERUM 4.2 mmol/L (3.5-5.1); PROTEIN - SERUM 7.3 g/dL (6.4-8.2)
[2018-04-18 08:20] VITALS: BP 113/48
[2018-04-18 12:38] VITALS: BP 120/52
[2018-04-18 13:40] VITALS: Ht 165.1 cm; Wt 96.2 kg
[2018-04-18 17:06] VITALS: BP 118/50
[2018-04-18 20:29] VITALS: BP 113/52
[2018-04-19 05:12] VITALS: BP 124/60
[2018-04-19 05:18] VITALS: BP 118/54
[2018-04-19 05:59] LABS: BASOPHILS 0.1 % (0-2); EOSINOPHILS 0.9 % (0-7); HEMATOCRIT 40.4 % (36.0-48.0); HEMOGLOBIN 12.9 g/dL (12-16); IMMATURE GRANULOCYTES 0.2 % (0-5); LYMPHOCYTES 29.6 % (15-50); MCH 29.6 pg (26.0-34.0); MCHC 31.9 g/dL (31.0-37.0); MCV 92.7 fL (80.0-100.0); MONOCYTES 7.4 % (2-11); NEUTROPHILS 61.8 % (40-80); PLATELET COUNT 276 10x3/uL (130-400); RBC 4.36 10x6/uL (4.00-5.40)
[2018-04-19 06:18] LABS: ALBUMIN 2.8 g/dL (3.4-5.0); ALKALINE PHOSPHATASE 61 U/L (46-116); ALT (SGPT) 12 U/L (10-68); BILIRUBIN - TOTAL 0.16 mg/dL (0.2-1.3); CALC OSMOLALITY 282 mosm/kg (275-300); CALCIUM 7.9 mg/dL (8.5-10.1); CARBON DIOXIDE 24.9 mmol/L (21.0-32.0); CHLORIDE - SERUM 106 mmol/L (98-107); CREATININE - SERUM 0.8 mg/dL (0.6-1.3); GLUCOSE 174 mg/dL (74-106); PROTEIN - SERUM 6.2 g/dL (6.4-8.2); SODIUM 141 mmol/L (136-145); UREA NITROGEN 8 mg/dL (7-18); eGFR NON AFRICAN AMERICAN 75 mL/min (90-120)
[2018-04-19 06:19] LABS: WBC 9.4 10x3/uL (4.8-10.8)
[2018-04-19 08:45] VITALS: BP 138/66
[2018-04-19 12:45] VITALS: BP 121/53
[2018-04-19 20:00] VITALS: BP 163/82
[2018-04-20 04:00] VITALS: BP 146/76
[2018-04-20 05:09] LABS: BASOPHILS 0.2 % (0-2); EOSINOPHILS 1.6 % (0-7); HEMATOCRIT 37.2 % (36.0-48.0); HEMOGLOBIN 12.1 g/dL (12-16); IMMATURE GRANULOCYTES 0.2 % (0-5); LYMPHOCYTES 27.9 % (15-50); MCHC 32.5 g/dL (31.0-37.0); MCV 92.1 fL (80.0-100.0); MEAN PLATELET VOLUME 11.1 fL (7.4-10.4); MONOCYTES 8.9 % (2-11); NEUTROPHILS 61.2 % (40-80); PLATELET COUNT 236 10x3/uL (130-400); RBC 4.04 10x6/uL (4.00-5.40); RDW 13.7 % (11.5-14.5); WBC 9.8 10x3/uL (4.8-10.8)
[2018-04-20 05:30] LABS: ALBUMIN 2.5 g/dL (3.4-5.0); ALKALINE PHOSPHATASE 63 U/L (46-116); ALT (SGPT) 9 U/L (10-68); BILIRUBIN - TOTAL 0.22 mg/dL (0.2-1.3); CALC OSMOLALITY 279 mosm/kg (275-300); CALCIUM 7.8 mg/dL (8.5-10.1); CARBON DIOXIDE 25.6 mmol/L (21.0-32.0); CHLORIDE - SERUM 106 mmol/L (98-107); CREATININE - SERUM 0.6 mg/dL (0.6-1.3); GLUCOSE 156 mg/dL (74-106); POTASSIUM - SERUM 3.1 mmol/L (3.5-5.1); PROTEIN - SERUM 5.8 g/dL (6.4-8.2); SODIUM 140 mmol/L (136-145); UREA NITROGEN 6 mg/dL (7-18); eGFR NON AFRICAN AMERICAN > 90 mL/min (90-120)
[2018-04-20 09:12] VITALS: BP 162/70
[2018-04-20 13:46] VITALS: BP 158/71
[2018-04-20 16:49] VITALS: BP 141/71
[2018-04-20 20:00] VITALS: BP 134/53
[2018-04-21 04:00] VITALS: BP 147/63
[2018-04-21 05:05] LABS: BASOPHILS 0.2 % (0-2); EOSINOPHILS 4.2 % (0-7); IMMATURE GRANULOCYTES 0.4 % (0-5); LYMPHOCYTES 32.4 % (15-50); MCH 29.4 pg (26.0-34.0); MCHC 32.4 g/dL (31.0-37.0); MCV 90.9 fL (80.0-100.0); MEAN PLATELET VOLUME 10.6 fL (7.4-10.4); MONOCYTES 6.4 % (2-11); NEUTROPHILS 56.4 % (40-80); PLATELET COUNT 219 10x3/uL (130-400); RBC 3.74 10x6/uL (4.00-5.40); RDW 13.4 % (11.5-14.5); WBC 8.3 10x3/uL (4.8-10.8)
[2018-04-21 05:32] LABS: ALBUMIN 2.4 g/dL (3.4-5.0); ALKALINE PHOSPHATASE 61 U/L (46-116); ALT (SGPT) 11 U/L (10-68); BILIRUBIN - TOTAL 0.17 mg/dL (0.2-1.3); CALC OSMOLALITY 281 mosm/kg (275-300); CALCIUM 7.8 mg/dL (8.5-10.1); CARBON DIOXIDE 24.8 mmol/L (21.0-32.0); CHLORIDE - SERUM 108 mmol/L (98-107); CREATININE - SERUM 0.6 mg/dL (0.6-1.3); GLUCOSE 171 mg/dL (74-106); POTASSIUM - SERUM 3.1 mmol/L (3.5-5.1); PROTEIN - SERUM 5.4 g/dL (6.4-8.2); SODIUM 141 mmol/L (136-145); UREA NITROGEN 5 mg/dL (7-18); eGFR NON AFRICAN AMERICAN > 90 mL/min (90-120)
[2018-04-21 07:25] LABS: HIV 1 & 2- RAPID SCREEN NEGATIVE (NEGATIVE)
[2018-04-21 12:33] VITALS: BP 152/73
[2018-04-21] MEDS ORDERED: FLAGYL500 MG PO (13:25)
[2018-04-21] MEDS ORDERED: LEVAQUIN750 MG PO (13:26)
[2018-04-21 17:34] VITALS: BP 126/74
[2018-04-24 03:12] LABS: HEPATITIS C ANTIBODY <0.1 (0.0-0.9)
[2018-04-24 14:17] LABS: HCVGENO - HEP C QUANT HCV Not Detected IU/mL (())
== END 2018-04-21 17:30 | disposition home or self-care (01) | DRG 389 ==
LOC: D.ER 19:50 → OBSVTIME 04-18 03:05 → D.MS 04-18 03:05
PROVIDERS: Family Medicine; Internal Medicine Nephrology
PROC: 0D9670Z Drainage of Stomach with Drainage Device, Via Natural or Artificial Opening (ICD-10-PCS; principal; 2018-04-18)
DX: K56.609 Unspecified intestinal obstruction, unspecified as to partial versus complete obstruction (principal); F17.213 Nicotine dependence, cigarettes, with withdrawal; E87.2 Acidosis; K52.9 Noninfective gastroenteritis and colitis, unspecified; E11.9 Type 2 diabetes mellitus without complications; K21.9 Gastro-esophageal reflux disease without esophagitis; I25.10 Atherosclerotic heart disease of native coronary artery without angina pectoris

== ENCOUNTER → 2018-05-07 12:49 | Outpatient (CLI) | payer MEDICARE, MEDICAID ==
[2018-04-18 13:40] VITALS: BMI 35.2
[~2018-05-07 12:49] MED LIST changes: +FLAGYL500 MG PO; +GLUCOSAMINE HC500 MG PO; +LEVAQUIN750 MG PO
== END | disposition home or self-care (01) ==
LOC: D.RAD 12:49
DX: K59.00 Constipation, unspecified (principal)

== ENCOUNTER → 2018-06-06 18:58 | Outpatient (CLI) | payer MEDICARE, MEDICAID ==
[2018-04-18 13:40] VITALS: BMI 35.2
== END | disposition home or self-care (01) ==
LOC: D.MAMMO 11:45
DX: Z12.31 Encounter for screening mammogram for malignant neoplasm of breast (principal)

== ENCOUNTER 2018-12-07 12:30 | Emergency (ER) | payer MEDICARE, MEDICAID ==
[~2018-12-07] VITALS: Ht 165.1 cm; Wt 93.2 kg
[2018-12-07 12:39] VITALS: Ht 165.1 cm; Wt 93.2 kg
[2018-12-07 13:12] LABS: ALBUMIN 3.6 g/dL (3.4-5.0); ALKALINE PHOSPHATASE 101 U/L (46-116); ALT (SGPT) 14 U/L (10-68); BILIRUBIN - TOTAL 0.29 mg/dL (0.2-1.3); CALC OSMOLALITY 279 mosm/kg (275-300); CALCIUM 8.9 mg/dL (8.5-10.1); CARBON DIOXIDE 25.4 mmol/L (21.0-32.0); CHLORIDE - SERUM 102 mmol/L (98-107); CREATININE - SERUM 0.9 mg/dL (0.6-1.3); GLUCOSE 214 mg/dL (74-106); PROTEIN - SERUM 7.5 g/dL (6.4-8.2); SODIUM 137 mmol/L (136-145); UREA NITROGEN 12 mg/dL (7-18); eGFR NON AFRICAN AMERICAN 66 mL/min (90-120)
[2018-12-07 13:16] LABS: BASOPHILS 0.5 % (0-2); EOSINOPHILS 2.2 % (0-7); HEMOGLOBIN 15.1 g/dL (12-16); IMMATURE GRANULOCYTES 0.2 % (0-5); LYMPHOCYTES 32.6 % (15-50); MCH 30.6 pg (26.0-34.0); MCHC 33.6 g/dL (31.0-37.0); MCV 91.1 fL (80.0-100.0); MEAN PLATELET VOLUME 11.3 fL (7.4-10.4); MONOCYTES 5.9 % (2-11); NEUTROPHILS 58.6 % (40-80); RBC 4.94 10x6/uL (4.00-5.40); RDW 13.4 % (11.5-14.5); WBC 8.5 10x3/uL (4.8-10.8)
[2018-12-07 13:17] LABS: PLATELET COUNT 310 10x3/uL (130-400)
[2018-12-07 13:22] LABS: CKMB 0.5 U/L (0.0-3.6); CREATINE KINASE 33 UL (21-215)
[2018-12-07 13:23] LABS: TROPONIN-I < 0.017 ng/mL (0.000-0.060)
[2018-12-07 15:29] VITALS: BP 126/61
== END 2018-12-07 15:52 | disposition home or self-care (01) ==
LOC: D.ER 12:30
PROVIDERS: Family Medicine
DX: R07.9 Chest pain, unspecified (principal); Z86.79 Personal history of other diseases of the circulatory system

== ENCOUNTER 2019-04-17 20:13 | Observation (INO) | payer MEDICARE, MEDICAID ==
[~2019-04-17] VITALS: Ht 165.1 cm; Wt 109.1 kg
--- NOTE | ~2019-04-17 | HEMODYNAMI ---
PATIENT:KALEB TERRAZAS MEDICAL RECORD: [id number] : 48 LOCATION:[address] ADMISSION DATE: 04/17/19 Generatedon:04/18/201913:44 Patient name: KALEB TERRAZAS Patient #: [id number] SSN: [id number] : 1950 Date of study: 04/18/2019 Page: Of Hemodynamic Procedure Report Patient Data Patient Demographics Procedure consent was obtained First Name: KALEB Gender: Female Last Name: NINI : 1950 Middle Initial: R Age: 68 year(s) Patient #: [id number] Race: SSN: [id number] Additional ID: [id number] Contact details [address]: [address] [place] [address] State: [place] City: [place] Zip code: [address] Past Medical History History of disease Date Diagnosis Comments Diabetes Allergies Allergen Reaction Date Comments Reported Penicillins 07/21/2015 Other 07/21/2015 Carisoprodol, oxycodone, allergy acetaminophen Morphine 07/21/2015 Other 04/18/2019 Oxycodone allergy HCL,morphine,carisoprodol Admission Admission Data Admission Date: 04/17/2019 Admission Time: 23:29 Room #: [facility] Height (in.): 65 BSA: 2.14 (m2) Height (cm.): 165.1 BMI: 39.99 (kg/m2) Weight (lbs.): 240.31 Weight (kg.): 109 Lab Results Lab Result Date: 04/18/2019 Lab Result Time: 0:00 Biochemistry Name Units Result Min Max BUN mg/dl 9 --(*---)-- 7 18 CK-MB ng/ml 0.2 --(*---)-- 0 3.6 Creatinine mg/dl 0.7 --(*---)-- 0.6 1.3 eGFR ml/min 88.06527 -*(----)-- 90 120 NONAFRICAN Troponin l ng/ml 0.017 --(-*--)-- 0 0.06 CBC Name Units Result Min Max Hemoglobin g/dl 13.5 --(*---)-- 13.5 17.5 Procedure Procedure Types Cath Procedure Diagnostic Procedure [facility] w/Coronaries FFR/IVUS FFR Initial FFR Additional PCI Procedure Coronary Stent Coronary Stent Initial x2 Procedure Description Procedure Date Procedure Date: 04/18/2019 Procedure Start Time: 12:57 Procedure End Time: 13:40 Procedure Staff Name Function Alan Brown MD Performing Physician Jeanette Hester RT Monitor Gulshan May RN Nurse Dennis Camacho RT Scrub Procedure Data Cath Procedure Fluoroscopy Diagnostic fluoroscopy Total fluoroscopy Time: 7.3 time: 7.3 min min Diagnostic fluoroscopy Total fluoroscopy dose: dose: 1224 mGy 1224 mGy Contrast Material Contrast Material Type Amount (ml) Isovue 300 161 Entry Location Entry Primary Successful Side Size Upsize Upsize Entry Closure Succes sful Closure Location (Fr) 1 (Fr) 2 (Fr) Remarks Device Remarks Femoral Right 5 Fr 6 Fr artery Short Estimated blood loss: 10 ml Diagnostic catheters Device Type Used For End Catheter Placement MULTIPACK Pigtail 5 Fr Procedure catheter MULTIPACK JL 4.0 5Fr Procedure catheter MULTIPACK 3DRC 5Fr Procedure catheter Procedure Complications No complications Procedure Medications Medication Administration Route Dosage 0.9% NaCl I.V. 100 ml/hr Oxygen etCO2 Nasal cannula 2 l/min Heparin Flush Bag added to field 2 bags (1000units/500ml NS) Lidocaine 2% added to field 20 Radial Cocktail added to field 1 syringe (Verapamil 2mg/Nitro 400mcg/Heparin 1500units) Zofran I.V. 4 mg Versed I.V. 2 mg Fentanyl I.V. 100 mcg Versed I.V. 1 mg Fentanyl I.V. 50 mcg Heparin Bolus I.V. 4000 units Heparin Bolus I.V. 3000 units Hemodynamics Rest BSA: 2.14 (m2) HGB: 13.5 (g/dl) O2 Consumption: Estimated: 194.42 (ml/min) O2 Co nsumption indexed: Estimated:90.85 (ml/min/m) Heart Rate: 66 (bpm) Snapshots Pre Cath Intra NCS Post Cath Vital Signs Time Heart Resp SPO2 etCO2 NIBP (mmHg) Rhythm Pain Sedation Rate (ipm) (%) (mmHg) Status Level (bpm) 12:38:16 67 28 94 25.4 150/77(130) NSR 0 (11) 10(A) , No pain 12:42:34 66 13 95 0 161/81(126) NSR 0 (11) 10(A) , No pain 12:46:58 64 10 95 29.1 151/78(122) NSR 0 (11) 10(A) , No pain 12:51:20 63 22 96 14.2 149/76(124) NSR 0 (11) 10(A) , No pain 12:55:40 61 11 94 0 150/75(121) NSR 0 (11) 10(A) , No pain 12:59:56 62 12 94 35.1 117/96(109) NSR 0 (11) 10(A) , No pain 13:04:49 60 11 94 0 133/74(117) NSR 0 (11) 9(A) , No pain 13:09:05 71 18 94 32.1 148/73(111) NSR 0 (11) 9(A) , No pain 13:13:27 65 19 92 0 122/64(100) NSR 0 (11) 9(A) , No pain 13:17:41 65 11 91 11.2 127/66(106) NSR 0 (11) 9(A) , No pain 13:21:57 63 11 91 11.2 124/64(102) NSR 0 (11) 9(A) , No pain 13:26:11 62 11 91 11.9 119/66(91) NSR 0 (11) 9(A) , No pain 13:30:27 63 18 92 30.6 120/52(92) NSR 0 (11) 9(A) , No pain 13:34:43 63 18 92 38 108/55(100) NSR 0 (11) 9(A) , No pain Medications Time Medication Route Dose Verified Delivered Reason Not es Effectiveness by by 12:34:51 0.9% NaCl I.V. 100 Gulshan Gulshan Per physician ml/hr Lalo May RN RN 12:34:58 Oxygen etCO2 2 l/min Gulshan Gulshan for low 02 sats Nasal Lorigan Lalo cannula RN RN 12:35:08 Heparin Flush added 2 bags Gulshan Gulshan used for Bag to Lorigan Lorigan procedure (1000units/500ml field RN RN NS) 12:35:18 Lidocaine 2% added 20ml Gulshan Gulshan for local to vial Lorigan Lorigan anesthetic field RN RN 12:35:39 Radial Cocktail added 1 Gulshan Gulshan used for (Verapamil to syringe Lorigan Lorigan procedure 2mg/Nitro RN RN 400mcg/Heparin 1500units) 12:35:51 Zofran I.V. 4 mg Gulshan Gulshan for nausea Lalo May RN RN 12:51:55 Versed I.V. 2 mg Gulshan Gulshan for sedation Lalo May RN RN 12:52:03 Fentanyl I.V. 100 mcg Gulshan Gulshan for sedation Lalo May RN RN 12:59:12 Versed I.V. 1 mg Gulshan Gulshan for sedation Lalo May RN RN 13:03:42 Fentanyl I.V. 50 mcg Gulshan Gulshan for sedation Lalo May RN RN 13:15:12 Heparin Bolus I.V. 4000 Gulshan Gulshan for units Lorigan Lorigan anticoagulation RN RN 13:28:32 Heparin Bolus I.V. 3,000 Gulshan Gulshan for units Lorigan Lorigan anticoagulation RN child and adolescent therapist Log Time Note 11:55:31 Gulshan May RN sent for patient. Start room use. 12:04:13 Informed consent obtained and on chart 12:07:47 Patient Height : 65 inches 12:07:52 Patient Weight : 240.31 lbs 12:08:46 Lab Result : Hemoglobin 13.5 g/dl 12:08:46 Lab Result : eGFR NONAFRICAN 88.07455 ml/min 12:08:46 Lab Result : BUN 9 mg/dl 12:08:46 Lab Result : Creatinine 0.7 mg/dl 12:09:42 ACC Patient presents with Stable Angina CCS Anginal Class 2--Slight limitation of ordinary activity. 12:10:27 Procedure Status Urgent Heart Cath (IP). 12:10:37 Time tracking: Regular hours (M-F 7:00 - 5:00) 12:10:43 Plan of Care:Hemodynamics will remain stable., Cardiac rhythm will remain stable., Comfort level will be maintained., Respiratory function will remain adequate., Patient/ family verbilizes understanding of procedure., Procedure tolerated without complication., Recovers from procedure without complications.. 12:10:49 Patient received from Med II to CCL 2 Alert and oriented. Tansferred to table in Supine position. 12:11:01 H&P Date Dictated: 04/18/2019 Within 30 days and on chart.. 12:11:03 Pre-procedure instructions explained to patient. 12:11:06 Family in patients room. 12:11:09 Patient NPO since Midnight. 12:14:41 Patient allergic to Other allergyOxycodone HCL,morphine,carisoprodol 12:15:33 Is the patient allergic to Iodine/contrast media? No. 12:15:36 Was the patient premedicated? Yes 12:15:40 Is patient on blood thinner?Yes 12:15:45 ACC The patient was administered the following blood thiners within the last 24 hours: ACCPlavix 12:15:51 Patient diabetic? Yes. 12:16:08 If diabetic: On Metformin? No 12:16:16 Snore? Yes 12:16:26 Sleep apnea? No 12:16:30 Dentures? No ? 12:24:13 Warm blankets applied, and butch hugger turned on for patient comfort. 12:24:14 Correct patient and procedure confirmed by team. 12:24:14 ECG and BP/O2 sat monitors applied to patient. 12:34:51 0.9% NaCl 100 ml/hr I.V. was administered by Gulshan May RN; Per physician; Verbal order read back and verified. 12:34:58 Oxygen 2 l/min etCO2 Nasal cannula was administered by Gulshan May RN; for low 02 sats; Verbal order read back and verified. 12:35:08 Heparin Flush Bag (1000units/500ml NS) 2 bags added to field was administered by Gulshan May RN; used for procedure; Verbal order read back and verified. 12:35:18 Lidocaine 2% 20ml vial added to field was administered by Gulshan May RN; for local anesthetic; Verbal order read back and verified. 12:35:39 Radial Cocktail (Verapamil 2mg/Nitro 400mcg/Heparin 1500units) 1 syringe added to field was administered by Gulshan May RN; used for procedure; Verbal order read back and verified. 12:35:51 Zofran 4 mg I.V. was administered by Gulshan May RN; for nausea; Verbal order read back and verified. 12:37:05 Vital chart was started 12:37:39 Baseline sample Acquired. 12:37:43 Rhythm: sinus rhythm 12:37:46 Full Disclosure recording started 12:37:51 Pre procedure: right dorsailis pedis pulse 1+ Palpable, but thready & weak; easily obliterated 12:37:53 Modified Roberth's test Ulnar < 7 seconds 12:37:55 Patient pain scale 0/10 ?. 12:38:21 IV patent on arrival in left wrist with 0.9% NaCl at KVO. 12:38:23 Lab results completed and on chart. 12:38:26 Right Radial & Right Groin area was prepped with chlora-prep and draped in sterile fashion 12:38:27 Alarms reviewed by R. N. 12:38:27 Sharps counted by scrub and verified by R.N. 12:41:38 2) 60-89 Mildly reduced kidney function, and other findings (as for stage 1) point to kidney disease. 12:42:11 Maximum allowable contrast dose (3.7 X eGFR X 0.75)244 ml. 12:43:43 Lab Result : Troponin l 0.017 ng/ml 12:43:43 Lab Result : CK-MB 0.2 ng/ml 12:49:56 --------ALL STOP TIME OUT------ 12:49:57 Final Timeout: patient, procedure, and site verified with staff and physician. All members of the team are in agreement. 12:50:00 Right Radial & Right Groin site verified by team. 12:50:04 Fire Safety Assessment: A--An alcohol-based skin anteseptic being used preoperatively., C--Open oxygen or nitrous oxide is being used., D--An ESU, laser, or fiber-optic light is being used. 12:50:07 Physical assessment completed. ASA score P 2 - A patient with mild systemic disease as per Alan Brown MD. 12:50:12 Sedation plan: IV Moderate Sedation Medication:Versed, Fentanyl 12:51:55 Versed 2 mg I.V. was administered by Gulshan May RN; for sedation; Verbal order read back and verified. 12:52:03 Fentanyl 100 mcg I.V. was administered by Gulshan May RN; for sedation; Verbal order read back and verified. 12:56:40 Use device set Radial Dx or PCI 12:56:41 Tegaderm 4 x 4 (1626W) opened to sterile field. 12:56:42 ACIST Manifold (88420) opened to sterile field. 12:56:43 ACIST Hand Control (57526) opened to sterile field. 12:56:44 Bag Decanter (2002S) opened to sterile field. 12:56:44 Medline Cath Pack ([id number]) opened to sterile field. 12:56:45 ACIST Syringe (18928) opened to sterile field. 12:56:47 MBrace Wrist Support ([id number]) opened to sterile field. 12:56:48 EMERALD Guide Wire (981-860) opened to sterile field. 12:57:08 Procedure started. 12:57:24 Local anesthetic to right radial artery with Lidocaine 2% by Alan Brown MD.INITIAL ACCESS ONLY 12:59:12 Versed 1 mg I.V. was administered by Gulshan May RN; for sedation; Verbal order read back and verified. 13:00:48 Zero performed for pressure channel P1 13:00:51 Zero performed for pressure channel P1 13:02:02 UNABLE TO GAIN RADIAL ACCESS. Moving to femoral approach. 13:03:42 Fentanyl 50 mcg I.V. was administered by Gulshan May RN; for sedation; Verbal order read back and verified. 13:04:06 SHEATH 5FR Woodbine (TNR350) opened to sterile field. 13:04:31 Local anesthetic to right femoral artery with Lidocaine 2% by Alan Brown MD.ADDITIONAL ACCESS 13:04:40 A 5 Fr sheath was inserted into the Right Femoral artery 13:04:45 Use device set Multipack Set 13:04:48 DIAGNOSTIC Multipack 5Fr catheter set (ON4933) opened to sterile field. 13:04:52 A MULTIPACK Pigtail 5 Fr catheter was advanced over the wire and used for Procedure. 13:05:00 LV angiography performed. 13:05:01 LV gram done using ABRR 13:05:07 EF : 60 % 13:05:11 Injector settings: Ml/sec: 10, Volume: 20, 13:05:30 Catheter removed. 13:05:43 A MULTIPACK JL 4.0 5Fr catheter was advanced over the wire and used for Procedure. 13:06:07 LCA angiography performed. 13:06:09 Catheter removed. 13:06:35 A MULTIPACK 3DRC 5Fr catheter was advanced over the wire and used for Procedure. 13:07:01 RCA angiography performed. 13:07:09 Catheter removed. 13:07:58 Use device set [facility] PCI 13:08:00 SHEATH 6FR [place]bine (RDF283) opened to sterile field. 13:08:06 INFLATOR Merit BasixCompak (NW5671) opened to sterile field. 13:09:00 GUIDE 6FR 3DRC SH catheter ([id number]) opened to sterile field. 13:09:12 Sheath upsized to a 6 Fr Short. 13:09:28 6 Fr 3DRC SH guide catheter was inserted over the wire 13:10:25 Finderly Verrata Plus pressure wire (39633R) opened to sterile field. 13:11:15 FFR/IFR wire advanced. 13:12:56 pRCA lesion measured at 0.62 with IFR 13:14:08 ACC Pre-intervention VELIA Flow is 3. 13:14:15 Pre PCI Site: [place] pRCA has 80% stenosis. 13:14:28 CHOICE PT Extra Support 182cm wire ([id number]) opened to sterile field. 13:14:48 CPTXS wire advanced. 13:14:50 Wire advanced across lesion. 13:15:01 IFR wire removed. 13:15:12 Heparin Bolus 4000 units I.V. was administered by Gulshan May RN; for anticoagulation; Verbal order read back and verified. 13:16:24 Inflate balloon Inflation number: 1 A Mozec Rx 2.5 x 14 balloon was prepped and advanced across the Prox RCA 80, then inflated to 21 NICOLE for 0:10 (min:sec) -1. 13:17:30 Balloon removed over the wire. 13:18:38 Place stent Inflation Number: 2 A NHI RX 3.0 x 12 stent ([id number]) was prepped and advanced across the Prox RCA 80. The stent was deployed at 21 NICOLE for 0:10 (min:sec) 0. 13:19:37 ACC Post-intervention VELIA Flow is 3. 13:19:55 Post PCI Site: [place] pRCA has 0% stenosis. 13:20:00 Stent catheter was removed intact over wire. 13:20:01 Wire removed. 13:20:02 Guide catheter removed. 13:20:08 GUIDE 6FR XBLAD 3.5 catheter ([id number]) opened to sterile field. 13:20:20 6 Fr XBLAD 3.5 guide catheter was inserted over the wire 13:23:15 Finderly Verrata Plus pressure wire (00913S) opened to sterile field. 13:23:59 First Verrata wire would not reconnect appropriately, new wire opened. 13:24:02 FFR/IFR wire advanced. 13:26:21 Wire advanced across lesion. 13:26:31 mCirc lesion measured at 0.82 with IFR 13:27:59 ACC Pre-intervention VELIA Flow is 3. 13:28:00 Pre PCI Site: [place] mCirc has 80% stenosis. 13:28:24 Place stent Inflation Number: 1 A NHI RX 2.0 x 12 stent ([id number]) was prepped and advanced across the Mid CX 80. The stent was deployed at 13 NICOLE for 0:10 (min:sec) 0. 13:28:32 Heparin Bolus 3,000 units I.V. was administered by Gulshan May RN; for anticoagulation; Verbal order read back and verified. 13:28:48 Inflation number: 2 The stent balloon was then re-inflated across the Mid CX 0 to 3 NICOLE for 0:10 (min:sec) . 13:29:46 Post PCI Site: [place] mCirc has 0% stenosis. 13:29:51 ACC Post-intervention VELIA Flow is 3. 13:29:53 Stent catheter was removed intact over wire. 13:29:53 Wire removed. 13:29:54 Guide catheter removed. 13:29:59 EXOSEAL 6Fr (EX600) opened to sterile field. 13:32:36 Procedure ended.(Physican Out) 13:34:20 Fluoroscopy time 07.30 minutes. 13:34:33 Fluoroscopy dose: 1224 mGy 13:34:33 Flurop Dose total: 1224 13:34:40 Dose Area Product 37579 mGy/cm. 13:34:46 Contrast amount:Isovue 300 161ml. 13:34:50 Maximum allowable dose exceeded? No. 13:34:51 Sharps counted by scrub and verified by R.N. 13:34:58 ACT drawn and resulted at 110 seconds. (normal therapeutic range 180-240 seconds). 13:35:02 Insertion/operative site no bleeding no hematoma. 13:35:05 Post-op/insertion site Right Femoral artery dressed using a 4 x 4 and Tegaderm. 13:35:07 Post Procedure Pulses reassessed and unchanged 13:35:09 Post-procedure physical assessment completed. ASA score P 2 - A patient with mild systemic disease as per Alan Brown MD. 13:35:20 Post-op/insertion site Right Radial artery dressed using a Bandaid. 13:35:28 Post procedure rhythm: unchanged. 13:35:30 Estimated blood loss: 10 ml 13:35:32 Post procedure instruction explained to patient.Patient verbalizes understanding. 13:35:32 Patient needs reinforcement of post procedure teaching. 13:35:48 Procedure type changed to Cath procedure, Diagnostic procedure, LHC, [facility] w/Coronaries, FFR/IVUS, FFR Initial, FFR Additional, PCI procedure, Coronary Stent, Coronary Stent Initial x2 13:35:50 Procedure and supply charges have been captured, reviewed, submitted and are correct. 13:35:53 Procedure Complication : No complications 13:36:40 Vital chart was stopped 13:36:47 [facility] Findings: MVD- PCI performed (see procedure note) 13:39:50 Operative report dictated upon procedure completion. 13:39:51 See physician's report for complete and final results. 13:39:53 Report given to Pre/Post Procedure Room. 13:40:02 Patient transfered to Pre/Post Procedure Room with Bed. 13:40:05 Procedure ended. 13:40:05 Full Disclosure recording stopped 13:43:55 End room use (Document Last) Intervention Summary Intervention Notes Time ActionType Lesion and Equipment Used Action# Pressure Duration Attributes 13:16:24 Inflate Prox RCA Mozec Rx 2.5 x 1 21 00:10 balloon 14 balloon 13:18:38 Place stent Prox RCA NHI RX 3.0 x 2 21 00:10 12 stent ([id number]) 13:28:24 Place stent Mid CX NHI RX 2.0 x 1 13 00:10 12 stent ([id number]) 13:28:48 Reinflate Mid CX NHI RX 2.0 x 2 3 00:10 stent 12 stent balloon ([id number]) Device Usage Item Name Manufacture Quantity Catalog Number Hospital Part Current Minimal Lot# / Charge Number Stock Stock Serial# Code Tegaderm 4 x 4 3M 1 [id number] 246840 [id number] 5 (1626W) ACIST Manifold Acist 1 72348 514798 436528 457540 5 (33284) Medical Systems Inc ACIST Hand Acist 1 54195 098675 959503 263989 5 Control Medical (43364) Systems Inc Bag Decanter Microtek 1 2001S 122777 22350 158904 5 (2001S) Medical Inc. Medline Cath Medline 1 [id number] 319850 89675 773093 5 Pack ([id number]) ACIST Syringe Acist 1 09584 711184 449045 838218 20 (78877) Medical Systems Inc MBrace Wrist Advanced 1 140-0250-00 495134 88692 508173 5 Support Vascular (136973763) Dynamics EMERALD Guide Cardinal 1 502-455 927241 999044 559856 5 Wire (502-455) Health SHEATH 5FR Terumo 1 IKX939 691069 972188 203989 5 [place]ine (GAC231) DIAGNOSTIC Cardinal 1 KJ7817 437069 32432 120772 30 Multipack 5Fr Health catheter set (OD3158) MULTIPACK Cardinal 1 082689 5 Pigtail 5 Fr Health catheter MULTIPACK JL Cardinal 1 477848 5 4.0 5Fr Health catheter MULTIPACK 3DRC Cardinal 1 144910 5 5Fr catheter Health SHEATH 6FR Terumo 1 UUR209 159499 349943 216517 40 [place] (CMS556) INFLATOR Merit Merit 1 YE0321 639525 241147 392933 15 UnifyoohBizimply Medical (NE1703) GUIDE 6FR 3DRC Medtronic 1 [id number] 924842 496790 346344 1 SH catheter ([id number]) Pe Ell Pe Ell 2 82466D 169431 249615875 457123 5 Verrata Plus pressure wire (15611I) CHOICE PT Wilder 1 [id number] 507188 972911 010776 5 Extra Support Scientific 182cm wire (0635459A7) Mozec Rx 2.5 x Cardinal 1 [id number] 476178 79140 743817 5 UMOE02 14 balloon Health NHI RX 3.0 x Medtronic 1 [id number] 571541 2377105 525236 5 [id number] 12 stent ([id number]) GUIDE 6FR Cardinal 1 [id number] 662165 497162 817111 10 XBLAD 3.5 Health catheter (35024166) NHI RX 2.0 x Medtronic 1 [id number] 827675 3051133 325143 5 [id number] 12 stent ([id number]) EXOSEAL 6Fr Cardinal 1 EX600 047023 100885 772166 10 (EX600) Health Signature Audit Cornell Stage Time Signature Unsigned Intra-Procedure 04/18/2019 Dennis Camacho 1:42:05 PM RT(R) Intra-Procedure 04/18/2019 Gulshan 1:43:47 PM Lalo COLBY Intra-Procedure 04/18/2019 Alan Brown 1:44:17 PM Signatures Performing Physician : Signature : Alan Brown MD Date : Time : Monitor : Jeanette Hester Signature : RT Date : Time : Nurse : Gulshan May Signature : RN Date : Time : [facility] [address] [place] [address]
[2019-04-17 21:16] VITALS: BP 143/79
[2019-04-17 21:31] LABS: BASOPHILS 0.2 % (0-2); EOSINOPHILS 0.4 % (0-7); HEMATOCRIT 42.4 % (36.0-48.0); IMMATURE GRANULOCYTES 0.4 % (0-5); LYMPHOCYTES 15.3 % (15-50); MCV 90.8 fL (80.0-100.0); MEAN PLATELET VOLUME 11.1 fL (7.4-10.4); MONOCYTES 5.2 % (2-11); NEUTROPHILS 78.5 % (40-80); PLATELET COUNT 310 10x3/uL (130-400); RBC 4.67 10x6/uL (4.00-5.40); RDW 13.6 % (11.5-14.5); WBC 9.7 10x3/uL (4.8-10.8)
[2019-04-17 21:54] LABS: ALBUMIN 3.5 g/dL (3.4-5.0); ALKALINE PHOSPHATASE 105 U/L (46-116); ALT (SGPT) 11 U/L (10-68); BILIRUBIN - TOTAL 0.19 mg/dL (0.2-1.3); CALC OSMOLALITY 282 mosm/kg (275-300); CALCIUM 8.7 mg/dL (8.5-10.1); CARBON DIOXIDE 25.4 mmol/L (21.0-32.0); CHLORIDE - SERUM 103 mmol/L (98-107); CREATININE - SERUM 0.8 mg/dL (0.6-1.3); GLUCOSE 199 mg/dL (74-106); POTASSIUM - SERUM 4.2 mmol/L (3.5-5.1); PROTEIN - SERUM 7.1 g/dL (6.4-8.2); SODIUM 139 mmol/L (136-145); UREA NITROGEN 11 mg/dL (7-18); eGFR NON AFRICAN AMERICAN 75 mL/min (90-120)
[2019-04-17 21:58] LABS: CKMB 0.2 U/L (0.0-3.6); CREATINE KINASE 30 UL (21-215)
[2019-04-17 21:59] LABS: TROPONIN-I < 0.017 ng/mL (0.000-0.060)
[2019-04-17 22:04] LABS: APTT 24.5 SECONDS (22.8-39.4); INR 0.95 (0.85-1.17); PROTIME 12.2 SECONDS (11.6-15.0)
--- NOTE | 2019-04-17 22:11 | NUR ---
PT TO CT AT THIS TIME VIA STRETCHER.
[2019-04-17 22:16] VITALS: BP 152/68
[2019-04-17 22:51] LABS: APPEARANCE CLEAR (CLEAR); BILIRUBIN NEGATIVE (NEGATIVE); COLOR YELLOW (YELLOW); GLUCOSE 1000 mg/dL (NEGATIVE); KETONE NEGATIVE (NEGATIVE); NITRITE NEGATIVE (NEGATIVE); PROTEIN NEGATIVE (NEGATIVE); UROBILINOGEN NORMAL (NORMAL)
[2019-04-17 23:43] VITALS: BP 168/73
[2019-04-18 00:45] VITALS: BP 143/52
[2019-04-18 01:44] VITALS: BMI 40.0
[2019-04-18 04:30] VITALS: BP 144/66
[2019-04-18 06:18] LABS: BASOPHILS 0.3 % (0-2); EOSINOPHILS 1.4 % (0-7); HEMATOCRIT 42.1 % (36.0-48.0); HEMOGLOBIN 13.5 g/dL (12-16); IMMATURE GRANULOCYTES 0.1 % (0-5); LYMPHOCYTES 37.4 % (15-50); MCH 29.3 pg (26.0-34.0); MCHC 32.1 g/dL (31.0-37.0); MCV 91.5 fL (80.0-100.0); MEAN PLATELET VOLUME 11.3 fL (7.4-10.4); MONOCYTES 6.4 % (2-11); NEUTROPHILS 54.4 % (40-80); PLATELET COUNT 298 10x3/uL (130-400); RDW 13.9 % (11.5-14.5); WBC 8.6 10x3/uL (4.8-10.8)
[2019-04-18 06:59] LABS: ALBUMIN 3.2 g/dL (3.4-5.0); ALKALINE PHOSPHATASE 85 U/L (46-116); ALT (SGPT) 12 U/L (10-68); BILIRUBIN - TOTAL 0.28 mg/dL (0.2-1.3); CALCIUM 8.4 mg/dL (8.5-10.1); CARBON DIOXIDE 27.3 mmol/L (21.0-32.0); CHLORIDE - SERUM 106 mmol/L (98-107); CKMB 0.2 U/L (0.0-3.6); CREATINE KINASE 27 UL (21-215); CREATININE - SERUM 0.7 mg/dL (0.6-1.3); POTASSIUM - SERUM 3.9 mmol/L (3.5-5.1); PROTEIN - SERUM 6.7 g/dL (6.4-8.2); SODIUM 141 mmol/L (136-145); UREA NITROGEN 9 mg/dL (7-18); eGFR NON AFRICAN AMERICAN 88 mL/min (90-120)
[2019-04-18 07:01] LABS: CALC OSMOLALITY 281 mosm/kg (275-300); GLUCOSE 138 mg/dL (74-106); TROPONIN-I < 0.017 ng/mL (0.000-0.060)
[2019-04-18 08:25] VITALS: Ht 165.1 cm; Wt 109.1 kg
--- NOTE | 2019-04-18 08:30 | NUR ---
AWAKE AND ALERT. DENIES ANY NEEDS OR ANY DISCOMFORT. UP AB KELI. TELEMERTY SHOWS SR 66. CALL LIGHT IN REACH WITH SR UP
[2019-04-18 08:55] VITALS: BP 130/59
--- NOTE | 2019-04-18 12:15 | NUR ---
TO ORGAN INSTALLER PER BED
--- NOTE | 2019-04-18 13:31 | HP ---
PATIENT: KALEB PATINO MEDICAL RECORD: [id number] ACCOUNT: [id number] LOCATION:[address] : [birth year] ADMISSION DATE: 04/17/19 PCP: LE POTTER MD HISTORY AND PHYSICAL EXAMINATION DIAGNOSES: 1. Unstable angina. 2. Coronary artery disease. 3. Previous percutaneous transluminal coronary angioplasty stent. 4. Shortness of breath, dyspnea on exertion. 5. Gastroesophageal reflux disease. 6. Diabetes. 7. Obesity. 8. Hypertension. 9. Hyperlipidemia. 10. Family history of coronary artery disease. HISTORY OF PRESENT ILLNESS: Mrs. Patino presents with unstable anginal symptomatology just come on her the past few days, it is like that of her previous angina, a tightness and a dull aching sensation across the anterior chest with radiation down the left arm. She had severe episodes yesterday when she was trying to do minimal exertion with gardening. She has continued to have episode this morning at rest. Last cardiac intervention was 2016. Her EKG shows a right bundle, but no acute ST-T abnormalities. Her troponin is normal. PHYSICAL EXAMINATION: CONSTITUTIONAL/GENERAL APPEARANCE: Well nourished, well developed, appears stated age. EYES: Lids and conjunctivae noninjected. No discharge. No pallor. ENT: Lips within normal limit. No cyanosis. No pallor. NECK: Carotid arteries, bilateral normal upstroke. No bruits. No thrills. No jugular venous pressure or distention. CERVICAL LYMPH NODES: Nontender. Nonenlarged. THYROID: Not enlarged. No nodules. CARDIOVASCULAR: Precordial exam, nondisplaced. No heaves or pericardial thrills. Rate and rhythm, regular. Heart sounds, normal S1, normal S2. No S3, no gallop, no rub. Systolic murmur, not heard. Diastolic murmur, not heard. RESPIRATORY: Respiratory effort, unlabored. Normal curvature. No thoracic deformity. No chest wall tenderness. Percussion, resonant. Auscultation, clear. No wheezes, no rales, no rhonchi. ABDOMEN: Soft, nondistended, nontender. No abdominal pain, no vomiting and normal appetite. MUSCULOSKELETAL: No joint tenderness, normal gait, normal tone. SKIN: Warm and dry. OVERALL IMPRESSION: Unstable angina class III-IV symptomatology at this time with episodes of rest pain this morning despite the addition of nitrates. She is still not on optimal medical management. Her heart rates in the 80s, systolic blood pressures in the 140s. We will add Lopressor to her medical regimen. Due to her multiple risk factors and continued pain and progression of the pain. We will proceed with coronary angiography later today. Further care depends upon findings of the angiography. TRANSINT:[id number] Voice Confirmation ID: [id number] DOCUMENT ID: [id number] HISTORY AND PHYSICAL [id number] KALEB PATINO JEFFREY MD at 1331 CC: [id number] DICTATION DATE: 04/18/19 0828 MANAGER PATHOLOGY: 04/18/19 1016 ADM IN [facility] [address] [place] [address]
--- NOTE | 2019-04-18 14:00 | NUR ---
PT RECEIVED VIA STRETCHER FROM COLLAR PACKER FOR RECOVERY. PT SLEEPING BUT VERBALLY AROUSABLE. PT DENIES PAIN OR DISCOMFORT. PT PLACED ON CARDIAC MONITORS AND O2 PLACE VIA NC AT 2L. PT'S IV WAS INFILITRATED BACK IN THE COLLAR PACKER, WILL NOT RESTART PER ORDER FROM DR NASSAR. HR NSR RATE 61, BP 131/66, RR 11, O2 SAT 94. R GROIN W 6FR EXOCELE, DRESSING CDI NO BLEEDING OR HEMATOMA NOTED. BANDAID TO R WRIST WHERE UN SUCCESSFUL ATTEMPT WAS MADE FOR ACCESS. NO BLEEDING OR HEMATOMA NOTED. EXTREMITIES WARM AND PINK, PEDAL PULSES PALPABLE. PT AND FAMILY INSTRUCTED FOR PT TO KEEP HEAD FLAT ON PILLOW AND LEG STRAIGHT, BOTH VERBALIZED UNDERSTANDING. CALL LIGHT IN REACH
[2019-04-18] MEDS ORDERED: PLAVIX75 MG PO (14:02)
--- NOTE | 2019-04-18 14:30 | NUR ---
PT RESTING COMFORTABLY, DENIES PAIN. C/O ITCHING WHERE THE BLUE SOAP IS, CLEANED OFF W WIPES. BANDAID ON R WRIST REMAINS CDI. R GROIN SOFT, DRESSING CDI NO BLEEDING OR SWELLING NOTED. LEP PINK AND WARM, PEDAL PULSES PALPABLE. SUPERVISORY CIVIL ENGINEER AT BS. CALL LIGHT IN REACH
--- NOTE | 2019-04-18 15:00 | NUR ---
PT RESTING W/O COMPLAINTS. R GROIN SOFT, NO BLEEDING NO HEMATOMA NOTED. LEG PINK AND WARM, PEDAL PULSES PALPABLE. PO FLUIDS GIVEN. VSS. CALL LIGHT IN REACH, FAMILY AT BEDSIDE
--- NOTE | 2019-04-18 15:33 | NUR ---
PT RESTING COMFORTABLY VISITING W FAMILY. PT TOLERATING PO FLUIDS WANTING SOMETHING TO EAT. CRACKERS GIVEN UNTIL CAN SIT HOB UP SOME. R GROIN SOFT, DRESSING CDI NO BLEEDING OR HEMATOMA NOTED. VSS. CALL LIGHT IN REACH, DENIES PAIN OR OTHER NEEDS AT THIS TIME.
--- NOTE | 2019-04-18 16:00 | NUR ---
PT RESTING COMFORTABLY, DENIES PAIN OR DISCOMFORT. R GROIN REMAINS SOFT, NO BLEEDING OR SWELLING NOTED. LEG PINK AND WARM, PEDAL PULSES PALPABLE. R WRIST BANDAIN CDI. HR 57, BP 137/55, O2 SAT 96 ON ROOM AIR. CALL LIGHT IN REACH
--- NOTE | 2019-04-18 16:35 | NUR ---
R GROIN SOFT, DRESSING CDI NO BLEEDING OR HEMATOMA NOTED. HOB ELEVATED SLIGHTLY. PT PLACED ON BEDPAN, VOIDED 300 CC CLEAR YELLOW URINE. SANDWICH TRAY SERVED. FAMILY AT BEDSIDE, CALL LIGHT IN REACH
--- NOTE | 2019-04-18 17:05 | NUR ---
R GROIN REMAINS SOFT, DRESSING CDI NO BLEEDING OR SWELLING NOTED. BANDAID ON R WRIST CDI. DISCHARGE INSTRUCTIONS REVIEWED W PT AND FAMILY MEMBER, BOTH VERBALIZED UNDERSTANDING.
--- NOTE | 2019-04-18 17:24 | NUR ---
MONITORS REMOVED AND PT UP TO DRESS FOR DISCHARGE W ASSIST FROM SISTER.
--- NOTE | 2019-04-18 17:33 | NUR ---
PT DISCHARGED VIA WC TO SISTER IN PRIVATE VEHICLE WITH ALL BELONGINGS AND DISCHARGE INFORMATION
--- NOTE | 2019-04-20 08:40 | MORECARE ---
CASE MANAGEMENT DISCHARGE SUMMARY PATIENT: KALEB TERRAZAS UNIT: [id number] ADM DATE: 04/17/19 AGE: 68 : [birth year] SEX: F ROOM/BED: D.CL02 AUTHOR: KATALINA PACHECO PHYSICIAN: REFERRING PHYSICIAN: BERNARDA NASSAR MD DATE OF SERVICE: 04/20/19 Discharge Plan Patient Name: KALEB TERRAZAS [facility] [facility] 1950 Planned Disposition: Anticipated Discharge Date: Discharge Date: 04/18/2019 Expected LOS: Initial Reviewer: [email or web address] Initial Review Date: 04/18/2019 Generated: 04/20/19 9:40 am Patient Name: KALEB TERRAZAS Page [id number] at 0840 All edits/amendments must be made on the electronic document DICTATION DATE: 04/20/19839 MANAGER FORENSIC: SHAHEED 04/20/19 0840 RPT#: [id number] DC DATE:04/18/19 STATUS: DIS IN [facility] [address] [place] [address] END OF REPORT
--- NOTE | 2019-04-22 11:10 | OP ---
PATIENT NAME: KALEB TERRAZAS MEDICAL RECORD: [id number] :[birth year] LOCATION:[facility] ADMISSION DATE:04/17/19 SURGEON: BERNARDA NASSAR MD DATE OF OPERATION: 04/18/2019 PROCEDURES: 1. PTCA stent RCA. 2. PTCA stent left circumflex. 3. IFR RCA. 4. IFR left circumflex. 5. Left heart catheterization. 6. Selective coronary angiography. 7. Left ventriculogram. INDICATION: Unstable angina and coronary artery disease. PROCEDURE PERFORMED: After informed consent was obtained and after a detailed description of risks, benefits as well as alternative therapies, the patient elected to proceed with angiogram and angioplasty. The right femoral area was prepped and draped in normal sterile fashion. Right femoral artery was cannulated via modified Seldinger technique with placement of 6-Sloven[place] sheath. All catheters exchanged through this sheath. FINDINGS: Left ventriculogram was performed in standard 30-degree BARR view, reveals good cardiac wall motion throughout all segments. Overall ejection fraction estimated 60%. SELECTIVE CORONARY ANGIOGRAPHY: 1. Left main is with no significant angiographic disease. 2. Left anterior descending has mild irregularities, but no flow-limiting stenosis. 3. The left circumflex has 80% stenosis in the mid vessel and IFR was abnormal at 0.82. 4. Right coronary artery has a previously placed stent at the ostium. There is 80% stenosis at the ostium and IFR was abnormal at less than 0.7. PTCA STENT OF THE RCA: The stent used was a 3.0 x 12 mm [place] taken to 21 atmospheres. Result was 0% residual stenosis. PTCA STENT OF LEFT CIRCUMFLEX: The stent used was a 2.0 x 12 mm [place]. Result was 0% residual stenosis. OVERALL IMPRESSION: Successful PTCA stent of the RCA and circumflex, both going from 80% initial stenosis to 0% residual. TRANSINT:[id number] Voice Confirmation ID: [id number] DOCUMENT ID: [id number] OPERATIVE REPORT [id number] KALEB TERRAZAS JEFFREY MD at 1110 CC: [id number] DICTATION DATE: 04/18/19 1340 BRANCH OFFICE MANAGER: 04/18/19 1357 DIS IN 04/18/19 [place] [id number] [place] [address]
--- NOTE | 2019-04-22 11:10 | DS ---
PATIENT:KALEB PATINO :48 MEDICAL RECORD: [id number] DISCHARGE SUMMARY ADMISSION DATE: 04/17/19 DISCHARGE DATE: 04/18/19 ADDENDUM Ms. Patino was discharged with pravastatin 40 mg every day and prescription was given to her. TRANSINT:[id number] Voice Confirmation ID: [id number] DOCUMENT ID: [id number] BERNARDA NASSAR MD at 1110 CC: [id number] DICTATION DATE: 04/19/19 1416 CRIMINAL INTELLIGENCE ANALYST: 04/20/19 0736 DIS IN 04/18/19 [facility] [address] [place] [id number]
--- NOTE | 2019-04-22 11:10 | EC ---
PATIENT:KALEB TERRAZAS DATE OF SERVICE: 04/17/19 SEX: F MEDICAL RECORD: [id number] DATE OF : [birth year] [facility] AGE OF PATIENT: 68 ADMISSION DATE: 04/17/19 REFERRING PHYSICIAN: INTERPRETING PHYSICIAN: BERNARDA BROWN MD ECHOCARDIOGRAM REPORT ECHO CHARGES 4 ECHO COMPLETE Date: 04/18/19 CLINICAL DIAGNOSIS: UNSTABLE ANGINA/SOB ECHOCARDIOGRAPHIC MEASUREMENTS (adult normal given) AC root (d.<3.7cm) 2.7 cm LV Septum d (<1.2 cm> 1.1 cm Valve Excursion 1.6 cm LV Septum (systole) 1.8 cm Left Atria (s.<4.0cm> 4.2 cm LVPW d(<1.2cm) 1.2 cm RV (d.<2.3cm) 2.3 cm LVPW (sytole) 1.8 cm LV diastole(<5.6CM) 4.7 cm MV E-F(>70mm/sec) cm LV systole 2.9 cm LVOT Diameter 1.7 cm MV exc.(>10mm) cm Est.ejection fraction (50-75%) % DOPPLER: LVIT cm/sec A 74.0 cm/sec E 84.0 cm/sec LA cm/sec RVSP 31.0 mmHg LVOT 78.0 cm/sec AOP1/2T m/s Asc. Ao 136 cm/sec RVOT 45.0 cm/sec RA cm/sec PA 90.0 cm/sec AV Gradient Peak 7.4 mmHg AV Mean 4.2 mmHg AV Area 1.2 cm MV Gradient Peak 4.2 mmHg MV Mean 1.5 mmHg MV Area cm COMMENTS: Sourcing Engineer: Catia ROSALESOE Sole Stainer: 1 Dr. Brown TAPE# PACS Pericardial Effusion N DATE OF SERVICE: PROCEDURE: Echocardiogram. FINDINGS: 1. Left ventricular chamber size is within normal limits. Left ventricular systolic function is normal. Overall ejection fraction estimated at 55%. 2. Left atrium is enlarged at 4.2 cm. Right atrium and right ventricular chamber sizes are normal. 3. Valvular structures have normal structure and motion. ECHOCARDIOGRAM REPORT [id number] KALEB TERRAZAS 4. Doppler interrogation reveals mild tricuspid regurgitation and mild mitral regurgitation, no other valvular insufficiency or stenosis. Pulmonary systolic pressure is estimated at 31 mmHg. 5. No evidence of pericardial effusion or left ventricular thrombus. TRANSINT:[id number] Voice Confirmation ID: [id number] DOCUMENT ID: [id number] BERNARDA BROWN MD at 1110 CC: [id number] DICTATION DATE: 04/19/19 0946 ELECTRIC BLASTING CAP ASSEMBLER: 04/19/19 1053 DIS IN 04/18/19 [facility] [address] [place] [address]
== END 2019-04-18 17:30 | disposition home or self-care (01) ==
LOC: D.ER 20:13 → OBSVTIME 23:29 → D.M2 23:29 → D.CLR 04-18 13:48
PROVIDERS: Family Medicine; ADMIT Internal Medicine Interventional Cardiology; ATTEND Internal Medicine Interventional Cardiology
DX: I25.110 Atherosclerotic heart disease of native coronary artery with unstable angina pectoris (principal); K21.9 Gastro-esophageal reflux disease without esophagitis; E11.9 Type 2 diabetes mellitus without complications; E66.9 Obesity, unspecified; I10 Essential (primary) hypertension; E78.5 Hyperlipidemia, unspecified
CPT/HCPCS: 93458; 93571; 93572; C9600 ×2

== ENCOUNTER 2019-04-26 06:33 | Outpatient (CLI) | payer MEDICARE, MEDICAID ==
[~2019-04-26] VITALS: Ht 165.1 cm; Wt 93.2 kg
--- NOTE | ~2019-04-26 | HEMODYNAMI ---
PATIENT:KALEB TERRAZAS MEDICAL RECORD: [id number] : [birth year] LOCATION:[facility].[address] [id number] ADMISSION DATE: 04/26/19 Generatedon:04/26/201914:31 Patient name: KALEB TERRAZAS Patient #: [id number] SSN: [id number] : 1950 Date of study: 04/26/2019 Page: Of Hemodynamic Procedure Report Patient Data Patient Demographics Procedure consent was obtained First Name: KALEB Gender: Female Last Name: NINI : 1950 [facility] Initial: R Age: 68 year(s) Patient #: [id number] Race: SSN: [id number] Additional ID: [id number] Contact details [address]: [address] [place] [address] State: [place] City: [place] Zip code: [address] Past Medical History History of disease Date Diagnosis Comments Diabetes Allergies Allergen Reaction Date Comments Reported Penicillins 07/21/2015 Other 07/21/2015 Carisoprodol, oxycodone, allergy acetaminophen Morphine 07/21/2015 Other 04/18/2019 Oxycodone allergy HCL,morphine,carisoprodol Admission Admission Data Admission Date: 04/26/2019 Admission Time: 6:33 Arrival Date: 04/26/2019 Arrival Time: 6:33 Admit Source: Emergency Insurance Payor: Medicare, department Medicaid Room #: D.2121 Height (in.): 64.96 BSA: 2 (m2) Height (cm.): 165 BMI: 34.16 (kg/m2) Weight (lbs.): 205.03 Weight (kg.): 93 Lab Results Lab Result Date: 04/26/2019 Lab Result Time: 0:00 Biochemistry Name Units Result Min Max BUN mg/dl 15 --(--*-)-- 7 18 Creatinine mg/dl 1 --(--*-)-- 0.6 1.3 CBC Name Units Result Min Max Hemoglobin g/dl 14.3 --(*---)-- 13.5 17.5 Procedure Procedure Types Cath Procedure Diagnostic Procedure [facility] w/Coronaries FFR/IVUS FFR Initial Sedation Charges Moderate Sedation up to 30 minutes PCI Procedure Coronary Stent Coronary Stent Initial Procedure Description Procedure Date Procedure Date: 04/26/2019 Procedure Start Time: 14:04 Procedure End Time: 14:22 Procedure Staff Name Function Alan Brown MD Performing Physician Sheri Castillo RT Monitor Neela Mcleod RN Nurse Jeanette Hester RT Scrub Procedure Data Cath Procedure Fluoroscopy Diagnostic fluoroscopy Total fluoroscopy Time: 4.4 time: 4.4 min min Diagnostic fluoroscopy Total fluoroscopy dose: 888 dose: 888 mGy mGy Contrast Material Contrast Material Type Amount (ml) Isovue 300 87 Entry Location Entry Primary Successful Side Size Upsize Upsize Entry Closure Succes sful Closure Location (Fr) 1 (Fr) 2 (Fr) Remarks Device Remarks Femoral Right 5 Fr 6 Fr Exoseal artery Short Estimated blood loss: 5 ml Diagnostic catheters Device Type Used For End Catheter Placement MULTIPACK Pigtail 5 Fr LV Angiography catheter MULTIPACK JL 4.0 5Fr Left Coronary catheter Angiography MULTIPACK 3DRC 5Fr Right Coronary catheter Angiography Procedure Complications No complications Procedure Medications Medication Administration Route Dosage 0.9% NaCl I.V. 100 ml/hr Oxygen etCO2 Nasal cannula 2 l/min Lidocaine 2% added to field 20 Heparin Flush Bag added to field 2 bags (1000units/500ml NS) Phenergan I.V. 25 mg Versed I.V. 2 mg Fentanyl I.V. 100 mcg Heparin Bolus I.V. 4000 units Hemodynamics Rest BSA: 2 (m2) HGB: 14.3 (g/dl) O2 Consumption: Estimated: 198.02 (ml/min) O2 Consu mption indexed: Estimated:99.01 (ml/min/m) Heart Rate: 87 (bpm) Snapshots Pre Cath Intra NCS Post Cath Vital Signs Time Heart Resp SPO2 etCO2 NIBP (mmHg) Rhythm Pain Sedation Rate (ipm) (%) (mmHg) Status Level (bpm) 13:44:43 81 16 98 27.6 126/70(103) NSR 0 (11) 10(A) , No pain 13:48:57 89 17 98 29.1 129/72(96) NSR 0 (11) 10(A) , No pain 13:53:07 88 13 98 31.3 133/76(110) NSR 0 (11) 10(A) , No pain 13:57:23 85 11 97 31.3 126/75(105) NSR 0 (11) 9(A) , No pain 14:01:33 85 11 97 30.6 126/68(90) NSR 0 (11) 9(A) , No pain 14:05:47 82 12 97 38 123/73(90) NSR 0 (11) 9(A) , No pain 14:09:59 84 11 98 32.8 129/74(105) NSR 0 (11) 9(A) , No pain 14:14:15 85 14 98 35.1 130/72(110) NSR 0 (11) 9(A) , No pain 14:18:31 82 11 97 35.8 125/70(91) NSR 0 (11) 10(A) , No pain 14:22:45 81 11 98 34.3 129/70(91) NSR 0 (11) 10(A) , No pain Medications Time Medication Route Dose Verified Delivered Reason Notes Effectiveness by by 13:45:20 Phenergan I.V. 25 mg Alan Neela for nausea Stephanie Mcleod RN 13:45:37 0.9% NaCl I.V. 100 Alan Neela used for ml/hr Stephanie Mcleod manager china 13:45:43 Oxygen etCO2 2 Alan Neela used for Nasal l/min Stephanie Mcleod procedure cannula RN 13:45:49 Lidocaine 2% added 20ml Alan Alan for local to vial Stephanie Brown MD anesthetic field 13:45:53 Heparin Flush added 2 Alan Alan used for Bag to bags Stephanie Brown MD procedure (1000units/500ml field NS) 13:53:04 Fentanyl I.V. 100 Alan Neela for sedation mcg Stephanie Mcleod RN 13:53:58 Versed I.V. 2 mg Alan Neela for sedation Stephanie Mcleod RN 14:09:42 Heparin Bolus I.V. 4000 Alan Neela for verif ied units Stephanie Mcleod anticoagulation with Dr. EARNESTINE Brown Procedure Log Time Note 13:15:08 3a) 45-59 Moderately reduced kidney function. 13:15:33 Maximum allowable contrast dose (3.7 X eGFR X 0.75)160 ml. 13:15:41 Risk of Mortality: .1 13:15:45 Risk of blood transfusion: .2 13:15:49 Risk of ATIF: .6 13:35:46 Admit Source: Emergency department 13:35:57 Arrival Date: 04/26/2019 6:33:00 AM 13:36:08 Insurance Payor : Medicare, Medicaid 13:36:22 Patient Height : 64.96 inches 13:36:25 Patient Weight : 205.03 lbs 13:36:56 Lab Result : Hemoglobin 14.3 g/dl 13:36:56 Lab Result : Creatinine 1 mg/dl 13:36:56 Lab Result : BUN 15 mg/dl 13:37:06 ACC Patient presents with Unstable Angina CCS Anginal Class 4--Inability to carry out any physical activity w/o angina. Angina may occur at rest. 13:37:09 Procedure Status Urgent Heart Cath (IP). 13:37:11 Sheri Castillo RT(R) sent for patient. Start room use. 13:37:12 Time tracking: Regular hours (M-F 7:00 - 5:00) 13:37:17 Plan of Care:Hemodynamics will remain stable., Cardiac rhythm will remain stable., Comfort level will be maintained., Respiratory function will remain adequate., Patient/ family verbilizes understanding of procedure., Procedure tolerated without complication., Recovers from procedure without complications.. 13:43:35 Vital chart was started 13:43:47 Rhythm: sinus rhythm 13:45:20 Phenergan 25 mg I.V. was administered by Neela Mcleod RN; for nausea; Verbal order read back and verified. 13:45:37 0.9% NaCl 100 ml/hr I.V. was administered by Neela Mcleod RN; used for procedure; Verbal order read back and verified. 13:45:43 Oxygen 2 l/min etCO2 Nasal cannula was administered by Neela Mcleod RN; used for procedure; Verbal order read back and verified. 13:45:49 Lidocaine 2% 20ml vial added to field was administered by Alan Brown MD; for local anesthetic; Verbal order read back and verified. 13:45:53 Heparin Flush Bag (1000units/500ml NS) 2 bags added to field was administered by Alan Brown MD; used for procedure; Verbal order read back and verified. 13:46:22 Patient received from Med II to CCL 2 Alert and oriented. Tansferred to table in Supine position. 13:46:26 Signed procedure consent form obtained from patient. 13:46:26 Warm blankets applied, and butch hugger turned on for patient comfort. 13:46:27 Correct patient and procedure confirmed by team. 13:46:27 ECG and BP/O2 sat monitors applied to patient. 13:46:29 Baseline sample Acquired. 13:46:31 Full Disclosure recording started 13:49:10 H&P Date Dictated: 04/26/2019 Within 30 days and on chart., H&P Addendum completed by physician on day of procedure. (MUST COMPLETE FOR ALL OUTPATIENTS). 13:49:12 Pre-procedure instructions explained to patient. 13:49:13 Pre-op teaching completed and patient verbalized understanding. 13:49:14 Family in waiting room. 13:49:16 Patient NPO since Midnight. 13:49:24 Is the patient allergic to Iodine/contrast media? No. 13:49:25 Was the patient premedicated? Yes 13:49:26 Is patient on blood thinner?Yes 13:49:29 ACC The patient was administered the following blood thiners within the last 24 hours: ACCPlavix 13:49:31 Patient diabetic? Yes. 13:49:32 If diabetic: On Metformin? No 13:50:40 Previous problem with sedation/anesthesia? Yes nausea 13:50:42 Snore? Yes 13:50:43 Sleep apnea? No 13:50:44 Deviated septum? No 13:50:45 Opens mouth fully? Yes 13:50:45 Sticks out tongue? Yes 13:50:49 Airway obstruction? Yes copd 13:51:03 Dentures? No ? 13:51:06 Pre procedure: right dorsailis pedis pulse 1+ Palpable, but thready & weak; easily obliterated 13:51:08 Pre procedure: left dorsailis pedis pulse 1+ Palpable, but thready & weak; easily obliterated 13:51:13 IV patent on arrival in left forearm with 0.9% NaCl at KVO. 13:51:16 Lab results completed and on chart. 13:51:22 Right groin area was prepped with chlora-prep and draped in sterile fashion 13:51:25 Sharps counted by scrub and verified by R.N. 13:51:26 Physician arrived 13:51:27 --------ALL STOP TIME OUT------ 13:51:28 Final Timeout: patient, procedure, and site verified with staff and physician. All members of the team are in agreement. 13:51:30 Right groin site verified by team. 13:51:33 Fire Safety Assessment: A--An alcohol-based skin anteseptic being used preoperatively., C--Open oxygen or nitrous oxide is being used., D--An ESU, laser, or fiber-optic light is being used. 13:51:37 Physical assessment completed. ASA score P 2 - A patient with mild systemic disease as per Alan Brown MD. 13:51:41 Sedation plan: IV Moderate Sedation Medication:Versed, Fentanyl 13:53:04 Fentanyl 100 mcg I.V. was administered by Neela Mcleod RN; for sedation; Verbal order read back and verified. 13:53:58 Versed 2 mg I.V. was administered by Neela Mcleod RN; for sedation; Verbal order read back and verified. 14:03:59 Use device set Femoral Dx 14:04:02 ACIST Syringe (96459) opened to sterile field. 14:04:02 Bag Decanter (2002) opened to sterile field. 14:04:03 Medline Cath Pack ([id number]) opened to sterile field. 14:04:05 ACIST Hand Control (29680) opened to sterile field. 14:04:05 ACIST Manifold (48661) opened to sterile field. 14:04:06 DIAGNOSTIC Multipack 5Fr catheter set (GY7594) opened to sterile field. 14:04:06 Tegaderm 4 x 4 (1626W) opened to sterile field. 14:04:08 SHEATH 5FR Phillips (VFP633) opened to sterile field. 14:04:09 EMERALD Guide Wire (091-936) opened to sterile field. 14:04:14 Procedure started. 14:04:45 Local anesthetic to right femoral artery with Lidocaine 2% by Alan Brown MD.INITIAL ACCESS ONLY 14:05:05 A 5 Fr sheath was inserted into the Right Femoral artery 14:05:11 A MULTIPACK Pigtail 5 Fr catheter was advanced over the wire and used for LV Angiography. 14:05:13 LV hemodynamics recorded. 14:05:14 LV gram done using BARR 14:05:16 Injector settings: Ml/sec: 5, Volume: 15, 14:05:24 EF : 60 % 14:05:26 Catheter removed. 14:05:31 A MULTIPACK JL 4.0 5Fr catheter was advanced over the wire and used for Left Coronary Angiography. 14:06:24 LCA angiography performed. 14::27 Injector settings: Ml/sec: 3, Volume: 6, 14:08:06 Catheter removed. 14:08:11 A MULTIPACK 3DRC 5Fr catheter was advanced over the wire and used for Right Coronary Angiography. 14:08:24 RCA angiography performed. 14:08:27 Injector settings: Ml/sec: 3, Volume: 6, 14:08:30 Catheter removed. 14:08:35 Proceeding to intervention. 14:09:07 INFLATOR Merit BasixCompak (PV3260) opened to sterile field. 14:09:08 Madison Verrata Plus pressure wire (94941H) opened to sterile field. 14:09:09 SHEATH 6FR Phillips (HWX245) opened to sterile field. 14:09:19 GUIDE 6FR EBU 3.5 catheter ([id number]) opened to sterile field. 14:09:42 Heparin Bolus 4000 units I.V. was administered by Neela Mcleod RN; for anticoagulation; verified with Dr. Brown Verbal order read back and verified. 14:09:43 Sheath upsized to a 6 Fr Short. 14:09:55 6 Fr ebu 3.5 guide catheter was inserted over the wire 14:10:00 FFR/IFR wire advanced. 14:10:02 Baseline FFR 1. 14:10:24 Wire advanced across lesion. 14:11:16 mCirc lesion measured at 0.84 with IFR 14:13:31 Place stent Inflation Number: 1 A NHI RX 2.75 x 12 stent ([id number]) was prepped and advanced across the Mid CX 80. The stent was deployed at 14 NICOLE for 0:10 (min:sec) . 14:13:57 Stent catheter was removed intact over wire. 14:13:58 Pre PCI Site: [place] mCirc has 80% stenosis. 14:13:58 ACC Pre-intervention VELIA Flow is 3. 14:15:12 CHOICE PT Extra Support 182cm wire ([id number]) opened to sterile field. 14:16:22 choice pt wire advanced. 14:16:29 Inflate balloon Inflation number: 2 A EUPHORA 2.0 x 10 Balloon ([id number]) was prepped and advanced across the Mid CX , then inflated to 7 NICOLE for 0:10 (min:sec) . 14:16:38 Inflation number: 3 The EUPHORA 2.0 x 10 Balloon ([id number]) was reinflated across the Mid CX , to 11 NICOLE for 0:10 (min:sec) . 14:17:30 ACT drawn and resulted at 172 seconds. (normal therapeutic range 180-240 seconds). 14:17:31 Balloon removed over the wire. 14:17:32 Wire removed. 14:17:32 Guide catheter removed. 14:17:40 EXOSEAL 6Fr (EX600) opened to sterile field. 14:18:10 Sheath removed intact; hemostasis achieved with Exoseal to the Right Femoral artery. 14:18:13 Procedure ended.(Physican Out) 14:20:08 Fluoroscopy time 04.40 minutes. 14:20:12 Flurop Dose total: 888 14:20:12 Fluoroscopy dose: 888 mGy 14:20:18 Dose Area Product 98783 mGy/cm. 14:21:25 Contrast amount:Isovue 300 87ml. 14:21:27 Maximum allowable dose exceeded? No. 14:21:28 Sharps counted by scrub and verified by R.N. 14:21:30 Insertion/operative site no bleeding no hematoma. 14:21:53 Post right femoral artery:stable 14:21:56 Post procedure rhythm: unchanged. 14:21:59 Estimated blood loss: 5 ml 14:22:01 Post procedure instruction explained to patient.Patient verbalizes understanding. 14:22:01 Patient needs reinforcement of post procedure teaching. 14:22:16 Procedure type changed to Cath procedure, Diagnostic procedure, LHC, LHC w/Coronaries, FFR/IVUS, FFR Initial, Sedation Charges, Moderate Sedation up to 30 minutes, PCI procedure, Coronary Stent, Coronary Stent Initial 14:22:19 Procedure and supply charges have been captured, reviewed, submitted and are correct. 14:22:28 Procedure Complication : No complications 14:22:31 Vital chart was stopped 14:22:35 [facility] Findings: MVD- PCI performed (see procedure note) 14:22:37 Operative report dictated upon procedure completion. 14:22:40 Report given to [facility]. 14:22:43 Patient transfered to [facility] with Stretcher. 14:22:47 Procedure ended. 14:22:47 Full Disclosure recording stopped 14:22:57 ACC-PCI Only Patient was given prescriptions, or instructed by Alan Brown MD to start/continue the following medications upon discharge: Plavix 14:22:59 End room use (Document Last) Intervention Summary Intervention Notes Time ActionType Lesion and Equipment Used Action# Pressure Duration Attributes 14:13:31 Place stent Mid CX NHI RX 2.75 x 1 14 00:10 12 stent ([id number]) 14:16:29 Inflate Mid CX EUPHORA 2.0 x 2 7 00:10 balloon 10 Balloon ([id number]) 14:16:38 Reinflate Mid CX EUPHORA 2.0 x 3 11 00:10 balloon 10 Balloon ([id number]) Device Usage Item Name Manufacture Quantity Catalog Number Hospital Part Current Minimal Lot# / Charge Number Stock Stock Serial# Code ACIST Syringe Acist 1 26257 [id number] 572538 [id number] 20 (38989) Medical Systems Inc Bag Decanter Microtek 1 2001S 607391 78635 679179 5 (2001S) Medical Inc. Medline Cath Medline 1 [id number] 990642 38553 912929 5 Pack ([id number]) ACIST Hand Acist 1 48994 813966 918147 810635 5 Control Medical (22958) Systems Inc ACIST Manifold Acist 1 40719 013877 657073 905553 5 (95710) Medical Systems Inc DIAGNOSTIC Cardinal 1 BG9694 554875 05973 841926 30 Multipack 5Fr Health catheter set (TI0664) Tegaderm 4 x 4 3M 1 1626W 819140 449613 183640 5 (1626W) SHEATH 5FR Terumo 1 END988 298733 859317 632278 5 Phillips (ZUM146) EMERALD Guide Cardinal 1 502-455 230021 704433 233674 5 Wire (012-901) Health MULTIPACK Cardinal 1 563517 5 Pigtail 5 Fr Health catheter MULTIPACK JL Cardinal 1 172629 5 4.0 5Fr Health catheter MULTIPACK 3DRC Cardinal 1 262562 5 5Fr catheter Health INFLATOR Merit Merit 1 IK1129 679619 130007 566078 15 [facility] (MR5038) Madison Madison 1 07866A 345050 814449625 796121 5 Verrata Plus pressure wire (37141P) SHEATH 6FR Terumo 1 NXB889 344799 420366 541128 40 Phillips (BVC288) GUIDE 6FR EBU Medtronic 1 [id number] 268335 82209 886931 3 3.5 catheter ([id number]) NHI RX 2.75 x Medtronic 1 [id number] 509872 8938537 919356 5 [id number] 12 stent ([id number]) CHOICE PT [place] 1 [id number] 078356 696482 947537 5 Extra Support Scientific 182cm wire (1002288P8) EUPHORA 2.0 x Medtronic 1 [id number] 323146 404832 893578 5 [id number] 10 Balloon ([id number]) EXOSEAL 6Fr Cardinal 1 EX600 238660 786024 831904 10 (EX600) Health Signature Audit [place] Stage Time Signature Unsigned Intra-Procedure 04/26/2019 Sheri Castillo 2:29:10 PM RT(R) Intra-Procedure 04/26/2019 Neela Mcleod 2:31:15 PM RN Intra-Procedure 04/26/2019 Alan Brown 2:31:41 PM Signatures Performing Physician : Signature : Alan Brown MD Date : Time : Monitor : Sheri Castillo RT Signature : Date : Time : Nurse : Neela Mcleod RN Signature : Date : Time : [place] [address] [place] [address]
[2019-04-26 07:09] LABS: BASOPHILS 0.2 % (0-2); EOSINOPHILS 2.3 % (0-7); HEMATOCRIT 44.5 % (36.0-48.0); HEMOGLOBIN 14.3 g/dL (12-16); IMMATURE GRANULOCYTES 0.3 % (0-5); LYMPHOCYTES 25.6 % (15-50); MCH 29.8 pg (26.0-34.0); MCHC 32.1 g/dL (31.0-37.0); MCV 92.7 fL (80.0-100.0); MEAN PLATELET VOLUME 11.2 fL (7.4-10.4); MONOCYTES 5.3 % (2-11); NEUTROPHILS 66.3 % (40-80); PLATELET COUNT 335 10x3/uL (130-400); RDW 13.6 % (11.5-14.5); WBC 8.7 10x3/uL (4.8-10.8)
[2019-04-26 07:12] LABS: CALC OSMOLALITY 283 mosm/kg (275-300); CALCIUM 8.7 mg/dL (8.5-10.1); CARBON DIOXIDE 26.7 mmol/L (21.0-32.0); CHLORIDE - SERUM 102 mmol/L (98-107); GLUCOSE 224 mg/dL (74-106); SODIUM 138 mmol/L (136-145); UREA NITROGEN 15 mg/dL (7-18); eGFR NON AFRICAN AMERICAN 58 mL/min (90-120)
[2019-04-26 07:21] LABS: APTT 25.2 SECONDS (22.8-39.4); INR 0.89 (0.85-1.17); PROTIME 11.6 SECONDS (11.6-15.0)
[2019-04-26 07:27] LABS: ALBUMIN 3.5 g/dL (3.4-5.0); ALKALINE PHOSPHATASE 122 U/L (46-116); ALT (SGPT) 11 U/L (10-68); BILIRUBIN - TOTAL 0.21 mg/dL (0.2-1.3); CKMB 0.2 U/L (0.0-3.6); CREATINE KINASE 30 UL (21-215); MAGNESIUM - SERUM 2.1 mg/dL (1.8-2.4); PROTEIN - SERUM 7.9 g/dL (6.4-8.2); TROPONIN-I < 0.017 ng/mL (0.000-0.060)
[2019-04-26] MEDS ORDERED: JANUVIA100 MG PO (09:30)
--- NOTE | 2019-04-26 09:37 | NUR ---
RECIVED FROM ER PER WC. TO ROOM 2121. ADMIT ASSESSMENT PER RN.
[2019-04-26] MEDS ORDERED: GLYXAMBI 25 MG1 EACH PO (09:41)
[2019-04-26 09:55] VITALS: BP 138/83; BMI 34.1
[2019-04-26 10:24] VITALS: Ht 165.1 cm; Wt 93.2 kg
[2019-04-26 12:00] VITALS: BP 101/49
[2019-04-26 13:10] LABS: CKMB 0.3 U/L (0.0-3.6); CREATINE KINASE 25 UL (21-215); TROPONIN-I < 0.017 ng/mL (0.000-0.060)
--- NOTE | 2019-04-26 13:29 | HP ---
PATIENT: KALEB PATINO MEDICAL RECORD: [id number] ACCOUNT: [id number] LOCATION:[address] : [birth year] ADMISSION DATE: 04/26/19 PCP: LE POTTER MD HISTORY AND PHYSICAL EXAMINATION DIAGNOSES: 1. Unstable angina. 2. Coronary artery disease. 3. Recent PTCA and of left circumflex and RCA. 4. Abnormal ECG, suggests lateral ischemia. 5. Bya-jiawvlo-vutdyzwdm diabetes. HISTORY OF PRESENT ILLNESS: Ms. Patino is status post 2-vessel PTCA and stent last week. She has been taking Plavix and aspirin. She awoke at 4:30 with severe chest discomfort associated with diaphoresis, nausea, vomiting. She had multiple episodes of the chest discomfort. She had multiple sublingual nitro. She was taken to the Emergency Room. She became pain free. She has had another recurrent episode this morning as well. Her EKG suggests ongoing lateral ischemia at rest. She did have circumflex and RCA stents. PHYSICAL EXAMINATION: CONSTITUTIONAL/GENERAL APPEARANCE: Well nourished, well developed, appears stated age. EYES: Lids and conjunctivae noninjected. No discharge. No pallor. ENT: Lips within normal limit. No cyanosis. No pallor. NECK: Carotid arteries, bilateral normal upstroke. No bruits. No thrills. No jugular venous pressure or distention. CERVICAL LYMPH NODES: Nontender. Nonenlarged. THYROID: Not enlarged. No nodules. CARDIOVASCULAR: Precordial exam, nondisplaced. No heaves or pericardial thrills. Rate and rhythm, regular. Heart sounds, normal S1, normal S2. No S3, no gallop, no rub. Systolic murmur, not heard. Diastolic murmur, not heard. RESPIRATORY: Respiratory effort, unlabored. Normal curvature. No thoracic deformity. No chest wall tenderness. Percussion, resonant. Auscultation, clear. No wheezes, no rales, no rhonchi. ABDOMEN: Soft, nondistended, nontender. No abdominal pain, no vomiting and normal appetite. MUSCULOSKELETAL: No joint tenderness, normal gait, normal tone. SKIN: Warm and dry. OVERALL IMPRESSION: Chest pain. At this time, she is on a long-acting nitrate. Heart rate is in the 70s. Systolic blood pressure is in the 110-120 range. Due to the ongoing symptomatology despite the long-acting nitrate, we will proceed with repeat coronary angiography especially in light of the EKG abnormalities and to assure patency of the circumflex and RCA stents. TRANSINT:[id number] Voice Confirmation ID: [id number] DOCUMENT ID: [id number] HISTORY AND PHYSICAL [id number] KALEB PATINO JEFFREY MD at 1329 CC: [id number] DICTATION DATE: 04/26/19 1023 WHEAT GROWER: 04/26/19 1047 REG [facility] [address] [place] [address]
--- NOTE | 2019-04-26 13:31 | NUR ---
TO OPERATIONS VICE PRESIDENT PER BED
--- NOTE | 2019-04-26 14:48 | NUR ---
RETURN FROM ROAD OILING TRUCK DRIVER PER BED. RT SHELLY CONRAD C/D/I, PULSE PALP
[2019-04-26 16:00] VITALS: BP 109/52
--- NOTE | 2019-04-26 17:01 | NUR ---
WITHOUT CHANGES OR DISTRESS NOTED AT THIS TIME. DENIES NEEDS
--- NOTE | 2019-04-26 19:06 | NUR ---
DISCHARGED HOME WITH FAMILY, TAKEN DOWN VIA WHEELCHAIR
--- NOTE | 2019-05-07 11:40 | DS ---
PATIENT:KALEB PATINO :48 MEDICAL RECORD: [id number] DISCHARGE SUMMARY ADMISSION DATE: 04/26/19 DISCHARGE DATE: 04/26/19 DISCHARGE DIAGNOSES: 1. Unstable angina. 2. Percutaneous transluminal coronary angioplasty and stent of the left circumflex this admission. 3. Tzz-thuiaom-lcuzixvll diabetes. HOSPITAL COURSE: Ms. Patino presents with anginal symptomatology, found to have significant disease of the circumflex, underwent successful PTCA and stent of the left circumflex, discharged home with no change in her medications as she is already on aspirin and Plavix. She has statin intolerance and so statin was not instituted. Follow up with [facility] in 1 month. TRANSINT:[id number] Voice Confirmation ID: [id number] DOCUMENT ID: [id number] BERNARDA NASSAR MD at 1140 CC: [id number] DICTATION DATE: 04/26/19 1423 PACKAGING LINE ATTENDANT: 04/27/19 0330 DEP CLI 04/26/19 [facility] [address] [place] [address]
--- NOTE | 2019-05-07 11:40 | OP ---
PATIENT NAME: KALEB TERRAZAS MEDICAL RECORD: [id number] :[birth year] LOCATION:[facility] ADMISSION DATE: SURGEON: BERNARDA NASSAR MD DATE OF OPERATION: 04/26/2019 DATE OF SERVICE: 04/26/2019 PROCEDURES: 1. PTCA stent left circumflex. 2. IFR. 3. Left heart catheterization. 4. Selective coronary angiography. 5. Left ventriculogram. INDICATION: Angina and coronary artery disease. PROCEDURE IN DETAIL: After informed consent was obtained and after a detailed description of risks, benefits as well as alternative therapies, the patient elected to proceed with angiogram and angioplasty. The right femoral area was prepped and draped in normal sterile fashion. Right femoral artery was cannulated via modified Seldinger technique with placement of 6-Italian sheath. All catheters exchanged through this sheath. FINDINGS: The left ventriculogram was performed in standard 30-degree BARR view, reveals good cardiac wall motion, ejection fraction 55% to 60%. SELECTIVE CORONARY ANGIOGRAPHY: 1. Left main is with no significant angiographic disease. 2. Left anterior descending has moderate irregularities, but no flow-limiting stenosis. 3. The left circumflex has a previously placed stent. This is widely patent; however, there is a hazy questionable area of stenosis proximal to it and the IFR is abnormal at 0.84. 4. Right coronary has moderate irregularities, but no flow-limiting stenosis. PTCA STENT OF THE LEFT CIRCUMFLEX: The stent used was a 2.75 x 12 mm Darling. Result was 0% residual stenosis. OVERALL IMPRESSION: Successful percutaneous transluminal coronary angioplasty stent of the left circumflex going from 70% initial stenosis with an abnormal IFR to 0% residual stenosis. TRANSINT:[id number] Voice Confirmation ID: [id number] DOCUMENT ID: [id number] BERNARDA NASSAR MD at 1140 CC: [id number] DICTATION DATE: 04/26/19 1428 ASSEMBLY MACHINE OPERATOR: 04/26/19 1539 DEP CLI 04/26/[address] [address]
== END 2019-04-26 19:09 | disposition home or self-care (01) ==
LOC: D.ER 06:33 → D.OPS 06:33 → D.M2 07:46 → EDSTATUS 09:01 → D.OPS 19:09
PROVIDERS: Emergency Medicine; Family Medicine; ATTEND Internal Medicine Interventional Cardiology
DX: R07.9 Chest pain, unspecified (principal); I25.10 Atherosclerotic heart disease of native coronary artery without angina pectoris; K21.9 Gastro-esophageal reflux disease without esophagitis
CPT/HCPCS: C9600; 93572; 93458

== ENCOUNTER 2019-06-06 15:33 | Observation (INO) | payer MEDICARE, MEDICAID ==
[~2019-06-06] VITALS: Ht 165.1 cm; Wt 90.9 kg
--- NOTE | ~2019-06-06 | HEMODYNAMI ---
PATIENT:KALEB TERRAZAS MEDICAL RECORD: [id number] : 48 LOCATION:[address] [id number] ADMISSION DATE: 06/06/19 Generatedon:06/07/201912:14 Patient name: KALEB TERRAZAS Patient #: [id number] SSN: [id number] : 1950 Date of study: 06/07/2019 Page: Of Hemodynamic Procedure Report Patient Data Patient Demographics Procedure consent was obtained First Name: KALEB Gender: Female Last Name: NINI : 1950 [facility] Initial: R Age: 68 year(s) Patient #: [id number] Race: SSN: [id number] Additional ID: [id number] Contact details [address]: [address] [place] [address] State: [place] City: [place] Zip code: [address] Past Medical History History of disease Date Diagnosis Comments Diabetes Allergies Allergen Reaction Date Comments Reported Penicillins 07/21/2015 Other 07/21/2015 Carisoprodol, oxycodone, allergy acetaminophen Morphine 07/21/2015 Other 04/18/2019 Oxycodone allergy HCL,morphine,carisoprodol Admission Admission Data Admission Date: 06/06/2019 Admission Time: 16:10 Arrival Date: 06/06/2019 Arrival Time: 16:10 Admit Source: Other Insurance Payor: Medicare, Room #: D.2120 Medicaid HIC #: [id number] Height (in.): 65 BSA: 1.98 (m2) Height (cm.): 165.1 BMI: 33.28 (kg/m2) Weight (lbs.): 200 Weight (kg.): 90.72 Lab Results Lab Result Date: 06/07/2019 Lab Result Time: 0:00 Biochemistry Name Units Result Min Max BUN mg/dl 14 --(--*-)-- 7 18 Creatinine mg/dl 0.8 --(-*--)-- 0.6 1.3 CBC Name Units Result Min Max Hemoglobin g/dl 13.7 --(*---)-- 13.5 17.5 Procedure Procedure Types Cath Procedure Diagnostic Procedure [facility] w/Coronaries FFR/IVUS FFR Initial Sedation Charges Moderate Sedation up to 15 minutes PCI Procedure Coronary Stent Coronary Stent Initial Procedure Description Procedure Date Procedure Date: 06/07/2019 Procedure Start Time: 11:43 Procedure End Time: 12:06 Procedure Staff Name Function Alan Brown MD Performing Physician Sheri Castillo RT Monitor Mindy Tiwari RT Scrub Neela Mcleod RN Nurse Procedure Data Cath Procedure Fluoroscopy Diagnostic fluoroscopy Total fluoroscopy Time: 5.6 time: 5.6 min min Diagnostic fluoroscopy Total fluoroscopy dose: 733 dose: 733 mGy mGy Contrast Material Contrast Material Type Amount (ml) Isovue 300 98 Entry Location Entry Primary Successful Side Size (Fr) Upsize Upsize Entry Closure S uccessful Closure Location 1 (Fr) 2 (Fr) Remarks Device Remarks Femoral Right 6 Fr Exoseal artery Mid-Length Estimated blood loss: 5 ml Diagnostic catheters Device Type Used For End Catheter Placement MULTIPACK Pigtail 5 Fr LV Angiography catheter MULTIPACK JL 4.0 5Fr Left Coronary catheter Angiography MULTIPACK 3DRC 5Fr Right Coronary catheter Angiography Procedure Complications No complications Procedure Medications Medication Administration Route Dosage 0.9% NaCl I.V. 100 ml/hr Oxygen etCO2 Nasal cannula 2 l/min Lidocaine 2% added to field 20 Heparin Flush Bag added to field 2 bags (1000units/500ml NS) Plavix P.O. 75 mg Versed I.V. 2 mg Fentanyl I.V. 50 mcg Fentanyl I.V. 50 mcg Versed I.V. 2 mg Fentanyl I.V. 50 mcg Heparin Bolus I.V. 4000 units Hemodynamics Rest BSA: 1.98 (m2) HGB: 13.7 (g/dl) O2 Consumption: Estimated: 188.01 (ml/min) O2 Co nsumption indexed: Estimated:94.95 (ml/min/m) Heart Rate: 77 (bpm) Pressure Samples Time Site Value (mmHg) Purpose Heart Use Rate(bpm) 11:47 LV 105/16,22 Snapshot 74 Snapshots Pre Cath Intra NCS Post Cath Vital Signs Time Heart Resp SPO2 etCO2 NIBP (mmHg) Rhythm Pain Sedation Rate (ipm) (%) (mmHg) Status Level (bpm) 11:04:26 71 19 96 34 126/70(99) NSR 0 (11) 10(A) , No pain 11:08:42 76 17 97 40 140/71(111) NSR 0 (11) 10(A) , No pain 11:12:52 81 14 95 40 118/66(95) NSR 0 (11) 10(A) , No pain 11:17:06 82 18 95 38.5 118/66(93) NSR 0 (11) 10(A) , No pain 11:21:20 80 11 95 37.7 112/67(90) NSR 0 (11) 10(A) , No pain 11:25:32 78 11 96 39.2 118/69(100) NSR 0 (11) 10(A) , No pain 11:29:44 73 11 96 15.8 127/74(109) NSR 0 (11) 10(A) , No pain 11:33:50 78 19 96 30.2 110/73(89) NSR 0 (11) 10(A) , No pain 11:38:00 76 19 96 32.4 121/70(104) NSR 0 (11) 9(A) , No pain 11:42:14 78 19 96 29.4 122/73(102) NSR 0 (11) 9(A) , No pain 11:46:26 74 20 98 12.8 126/76(106) NSR 0 (11) 9(A) , No pain 11:50:42 82 10 96 31.6 135/72(109) NSR 0 (11) 9(A) , No pain 11:54:56 81 10 96 36.1 126/70(103) NSR 0 (11) 9(A) , No pain 11:59:12 83 10 97 38.4 128/73(106) NSR 0 (11) 10(A) , No pain 12:03:30 76 12 98 37 135/71(109) NSR 0 (11) 10(A) , No pain Medications Time Medication Route Dose Verified Delivered Reason Notes Effectiveness by by 11:03:20 0.9% NaCl I.V. 100 Alan Neela used for ml/hr Stephanie Mcleod dean 11:03:26 Oxygen etCO2 2 Alan Odellyla used for Nasal l/min Stephanie Mcleod procedure cannula RN 11:03:31 Lidocaine 2% added 20ml Alan Phillips for local to vial Stephanie Brown MD anesthetic field 11:03:35 Heparin Flush added 2 Alan Phillips used for Bag to bags Stephanie Brown MD procedure (1000units/500ml field NS) 11:04:33 Plavix P.O. 75 mg Alan Neela for Stephanie Mcleod antiplatelet RN therapy 11:28:15 Fentanyl I.V. 50 Alan Neela for sedation mcg Stephanie Mcleod RN 11:28:36 Versed I.V. 2 mg Alan Neela for sedation Stephanie Mcleod RN 11:28:47 Fentanyl I.V. 50 Alan Neela for sedation mcg Stephanie Mcleod RN 11:33:36 Versed I.V. 2 mg Alan Neela for sedation Stephanie Mcleod RN 11:33:40 Fentanyl I.V. 50 Alan Neela for sedation mcg Stephanie Mcleod RN 11:53:07 Heparin Bolus I.V. 4000 Alan Neela for verif ied units Stephanie Mcleod anticoagulation with Dr. EARNESTINE Brown Procedure Log Time Note 10:45:05 Mindy Tiwari RT(R) sent for patient. Start room use. 10:58:45 Diagnostic Cath Status : Elective 10:59:03 Procedure Status Urgent Heart Cath (IP). 10:59:12 Time tracking: Regular hours (M-F 7:00 - 5:00) 10:59:16 Plan of Care:Hemodynamics will remain stable., Cardiac rhythm will remain stable., Comfort level will be maintained., Respiratory function will remain adequate., Patient/ family verbilizes understanding of procedure., Procedure tolerated without complication., Recovers from procedure without complications.. 10:59:22 Patient received from Med II to CCL 2 Alert and oriented. Tansferred to table in Supine position. 10:59:23 Warm blankets applied, and butch hugger turned on for patient comfort. 10:59:25 Signed procedure consent form obtained from patient. 10:59:25 Correct patient and procedure confirmed by team. 10:59:28 ECG and BP/O2 sat monitors applied to patient. 11:03:11 Vital chart was started 11:03:20 0.9% NaCl 100 ml/hr I.V. was administered by Neela Mcleod RN; used for procedure; Verbal order read back and verified. 11:03:26 Oxygen 2 l/min etCO2 Nasal cannula was administered by Neela Mcleod RN; used for procedure; Verbal order read back and verified. 11:03:31 Lidocaine 2% 20ml vial added to field was administered by Alan Brown MD; for local anesthetic; Verbal order read back and verified. 11:03:35 Heparin Flush Bag (1000units/500ml NS) 2 bags added to field was administered by Alan Brown MD; used for procedure; Verbal order read back and verified. 11:04:33 Plavix 75 mg P.O. was administered by Neela Mcleod RN; for antiplatelet therapy; Verbal order read back and verified. 11:07:42 Baseline sample Acquired. 11:07:47 Rhythm: sinus rhythm 11:07:48 Full Disclosure recording started 11:07:53 H&P Date Dictated: 06/07/2019 New H&P dictated by physician.. 11:07:54 Pre-procedure instructions explained to patient. 11:07:54 Pre-op teaching completed and patient verbalized understanding. 11:07:55 Family in waiting room. 11:07:57 Patient NPO since Midnight. 11:08:00 Is the patient allergic to Iodine/contrast media? No. 11:08:02 Was the patient premedicated? Yes 11:08:03 Is patient on blood thinner?Yes 11:08:05 ACC The patient was administered the following blood thiners within the last 24 hours: ACCPlavix 11:08:19 Patient diabetic? Yes. 11:08:20 If diabetic: On Metformin? No 11:08:24 Previous problem with sedation/anesthesia? No ? 11:08:26 Snore? Yes 11:08:27 Sleep apnea? No 11:08:28 Deviated septum? No 11:08:28 Opens mouth fully? Yes 11:08:29 Sticks out tongue? Yes 11:08:32 Airway obstruction? No ? 11:08:40 Dentures? No ? 11:08:43 Pre procedure: right dorsailis pedis pulse 1+ Palpable, but thready & weak; easily obliterated 11:08:45 Pre procedure: left dorsailis pedis pulse 1+ Palpable, but thready & weak; easily obliterated 11:08:47 Patient pain scale 0/10 ?. 11:08:52 IV patent on arrival in left forearm with 0.9% NaCl at [facility]. 11:08:54 Lab results completed and on chart. 11:08:59 Stress Test: no; N/A ? 11:12:36 Risk of Mortality: 3.9 11:12:40 Risk of blood transfusion: 4.3 11:12:45 Risk of ATIF: 14.6 11:12:51 Right groin area was prepped with chlora-prep and draped in sterile fashion 11:12:52 Sharps counted by scrub and verified by R.N. 11:12:52 Alarms reviewed by RRina N. 11:16:56 Admit Source: Other 11:17:08 Arrival Date: 06/06/2019 4:10:00 PM 11:17:24 Insurance Payor : Medicare, Medicaid 11:17:44 Patient Weight : 200 lbs 11:17:50 Patient Height : 65 inches 11:18:25 Lab Result : BUN 14 mg/dl 11:18:25 Lab Result : Creatinine 0.8 mg/dl 11:18:25 Lab Result : Hemoglobin 13.7 g/dl 11:20:59 Zero performed for pressure channel P1 11:27:46 Physician arrived 11:27:46 --------ALL STOP TIME OUT------ 11:27:47 Final Timeout: patient, procedure, and site verified with staff and physician. All members of the team are in agreement. 11:27:51 Right groin site verified by team. 11:27:55 Fire Safety Assessment: A--An alcohol-based skin anteseptic being used preoperatively., C--Open oxygen or nitrous oxide is being used., D--An ESU, laser, or fiber-optic light is being used. 11:27:58 Physical assessment completed. ASA score P 2 - A patient with mild systemic disease as per Alan Brown MD. 11:28:15 Fentanyl 50 mcg I.V. was administered by Neela Mcleod RN; for sedation; Verbal order read back and verified. 11:28:31 2) 60-89 Mildly reduced kidney function, and other findings (as for stage 1) point to kidney disease. 11:28:35 Maximum allowable contrast dose (3.7 X eGFR X 0.75)208 ml. 11:28:36 Versed 2 mg I.V. was administered by Neela Mcleod RN; for sedation; Verbal order read back and verified. 11:28:40 Sedation plan: IV Moderate Sedation Medication:Versed, Fentanyl 11:28:47 Fentanyl 50 mcg I.V. was administered by Neela Mcleod RN; for sedation; Verbal order read back and verified. 11:29:54 Use device set Femoral Dx 11:29:55 ACIST Syringe (42988) opened to sterile field. 11:29:55 Bag Decanter (2002S) opened to sterile field. 11:29:56 Medline Cath Pack ([id number]) opened to sterile field. 11:29:57 ACIST Hand Control (18083) opened to sterile field. 11:29:57 ACIST Manifold (61039) opened to sterile field. 11:29:58 DIAGNOSTIC Multipack 5Fr catheter set (SR7448) opened to sterile field. 11:29:58 Tegaderm 4 x 4 (1626W) opened to sterile field. 11:29:59 EMERALD Guide Wire (999-388) opened to sterile field. 11:33:36 Versed 2 mg I.V. was administered by Neela Mcleod RN; for sedation; Verbal order read back and verified. 11:33:40 Fentanyl 50 mcg I.V. was administered by Neela Mcleod RN; for sedation; Verbal order read back and verified. 11:43:09 Procedure started. 11:43:14 Local anesthetic to right femoral artery with Lidocaine 2% by Alan Brown MD.INITIAL ACCESS ONLY 11:44:36 SHEATH 6FR Sherwood (YRN096) opened to sterile field. 11:45:38 A 6 Fr Mid-Length sheath was inserted into the Right Femoral artery 11:47:23 Catheter removed. 11:47:30 A MULTIPACK Pigtail 5 Fr catheter was advanced over the wire and used for LV Angiography. 11:47:36 LV hemodynamics recorded. 11:47:40 LV gram done using BARR 11:47:45 Injector settings: Ml/sec: 5, Volume: 15, 11:48:17 EF : 60 % 11:49:34 Catheter removed. 11:49:38 A MULTIPACK JL 4.0 5Fr catheter was advanced over the wire and used for Left Coronary Angiography. 11:49:42 Injector settings: Ml/sec: 3, Volume: 6, 11:49:45 Catheter removed. 11:49:50 A MULTIPACK 3DRC 5Fr catheter was advanced over the wire and used for Right Coronary Angiography. 11:49:57 Injector settings: Ml/sec: 3, Volume: 6, 11:50:25 Catheter removed. 11:50:42 6 Fr EBU 3 guide catheter was inserted over the wire 11:51:22 INFLATOR Merit [employer] (VV2979) opened to sterile field. 11:52:09 FFR/IFR wire advanced. 11:52:11 Baseline FFR 1. 11:52:12 Wire advanced across lesion. 11:53:05 mLAD lesion measured at 0.89 with IFR 11:53:07 Heparin Bolus 4000 units I.V. was administered by Neela Mcleod RN; for anticoagulation; verified with Dr. Brown Verbal order read back and verified. 11:53:57 LASER ELCA 0.9 Rx atherectomy catheter ([id number]) opened to sterile field. 11:56:16 Laser pass to mLAD with Fluence of 80 and Rate of 40. 11:58:08 Laser catheter removed. 11:59:44 Place stent Inflation Number: 1 A NHI RX 3.0 x 22 stent ([id number]) was prepped and advanced across the Mid LAD 95. The stent was deployed at 17 NICOLE for 0:00 (min:sec) . 12:00:22 Stent catheter was removed intact over wire. 12:01:49 mLAD lesion measured at 1.00 with IFR 12:02:06 Sheath removed intact; hemostasis achieved with Exoseal to the Right Femoral artery. 12:02:08 Procedure ended.(Physican Out) 12:02:22 Fluoroscopy time 05.60 minutes. 12:02:27 Flurop Dose total: 733 12::27 Fluoroscopy dose: 733 mGy 12:02:35 Dose Area Product 92672 mGy/cm. 12:02:39 Contrast amount:Isovue 300 98ml. 12:02:45 Maximum allowable dose exceeded? No. 12:02:46 Sharps counted by scrub and verified by R.N. 12:03:35 Insertion/operative site no bleeding no hematoma. 12:03:36 Insertion/operative site no bleeding no hematoma. 12:04:10 GUIDE 6FR EBU 3.0 catheter ([id number]) opened to sterile field. 12:04:50 Post PCI Site: Sun'Aq mLAD has 0% stenosis. 12:05:15 Post-op/insertion site Right Femoral artery dressed using a 4 x 4 and Tegaderm. 12:05:19 Post procedure rhythm: unchanged. 12:05:22 Estimated blood loss: 5 ml 12:05:23 Post procedure instruction explained to patient.Patient verbalizes understanding. 12:05:24 Patient needs reinforcement of post procedure teaching. 12:05:27 ACT drawn and resulted at 149 seconds. (normal therapeutic range 180-240 seconds). 12:05:45 Procedure type changed to Cath procedure, Diagnostic procedure, LHC, [facility] w/Coronaries, FFR/IVUS, FFR Initial, Sedation Charges, Moderate Sedation up to 15 minutes, PCI procedure, Coronary Stent, Coronary Stent Initial 12:05:47 Procedure and supply charges have been captured, reviewed, submitted and are correct. 12:05:54 Procedure Complication : No complications 12:05:57 Vital chart was stopped 12:05:59 [facility] Findings: MVD- PCI performed (see procedure note) 12:06:01 Operative report dictated upon procedure completion. 12:06:01 See physician's report for complete and final results. 12:06:04 Report given to [facility]. 12:06:07 Patient transfered to [facility] with Stretcher. 12:06:10 Procedure ended. 12:06:10 Full Disclosure recording stopped 12:06:19 ACC-PCI Only Patient was given prescriptions, or instructed by Alan Brown MD to start/continue the following medications upon discharge: Plavix 12:06:20 End room use (Document Last) 12:12:55 EXOSEAL 6Fr (EX600) opened to sterile field. Intervention Summary Intervention Notes Time ActionType Lesion and Equipment Used Action# Pressure Duration Attributes 11:59:44 Place stent Mid LAD NHI RX 3.0 x 1 17 00:00 22 stent ([id number]) Device Usage Item Name Manufacture Quantity Catalog Hospital [facility] Lot# / Number Charge Number Stock Stock Serial# Code ACIST Syringe Acist 1 90481 175530 114777 092220 20 (92072) Medical Systems Inc Bag Decanter Microtek 1 2001S 264204 01161 924999 5 (2001S) Medical Inc. Medline Cath Medline 1 [id number] 589266 26525 031843 5 Pack ([id number]) ACIST Hand Acist 1 46320 354909 156513 748594 5 Control Medical (44717) Systems Inc ACIST Manifold Acist 1 37109 570560 064036 449426 5 (59704) Medical Systems Inc DIAGNOSTIC Cardinal 1 IA5205 573835 15550 801454 30 Multipack 5Fr Health catheter set (NS8111) Tegaderm 4 x 4 3M 1 1626W 899937 529298 769718 5 (1626W) EMERALD Guide Cardinal 1 502-455 213751 603372 156246 5 Wire (502-455) Health SHEATH 6FR Terumo 1 SFR991 112221 716925 639421 40 Sherwood (FIV821) MULTIPACK Cardinal 1 208612 5 Pigtail 5 Fr Health catheter MULTIPACK JL Cardinal 1 706212 5 4.0 5Fr Health catheter MULTIPACK 3DRC Cardinal 1 865606 5 5Fr catheter Health INFLATOR Merit Merit 1 ZR5188 934267 935964 459373 15 Zazom (EO9715) LASER ELCA 0.9 Elizabeth 1 110-004 408528 397716 111935 5 Rx atherectomy Healthcare catheter (018395) (032819) NHI RX 3.0 x Medtronic 1 [id number] 925011 7072817 266241 5 [id number] 22 stent ([id number]) GUIDE 6FR EBU Medtronic 1 [id number] 089801 99189 426510 0 3.0 catheter ([id number]) EXOSEAL 6Fr Cardinal 1 EX600 073495 249163 075419 10 (EX600) Health Signature Audit [place] Stage Time Signature Unsigned Intra-Procedure 06/07/2019 Sheri Castillo 12:13:29 PM RT(R) Intra-Procedure 06/07/2019 Neela Mcleod 12:13:47 PM RN Intra-Procedure 06/07/2019 Alan Brown 12:14:11 PM Signatures Performing Physician : Signature : Alan Brown MD Date : Time : Monitor : Sheri Jonathan RT Signature : Date : Time : Nurse : Neela Harsha RN Signature : Date : Time : [address] [place] [address]
--- NOTE | ~2019-06-06 | DS ---
PATIENT:KALEB PATINO :48 MEDICAL RECORD: [id number] DISCHARGE SUMMARY ADMISSION DATE: 06/06/19 DISCHARGE DATE: 06/07/19 DISCHARGE DIAGNOSES: 1. Unstable angina. 2. Coronary artery disease. 3. PTCA and stent, laser atherectomy of LAD this admission. HISTORY AND HOSPITAL COURSE: Ms. Patino presented with anginal symptomatology, found to have significant disease of the LAD. Underwent successful PTCA and stent, laser atherectomy of the LAD. Discharged home with no further angina. No change in her medications as she is already on aspirin and Plavix. She will follow up with [facility] in 1 month. TRANSINT:[id number] Voice Confirmation ID: [id number] DOCUMENT ID: [id number] BERNARDA NASSAR MD CC: [id number] DICTATION DATE: 06/07/19 1210 SPIKE MACHINE HEATER: 06/08/19 0815 DIS IN 06/07/19 [facility] [address] [id number]
[~2019-06-06 15:33] MED LIST changes: +GLYXAMBI 25 MG1 EACH PO
[2019-06-06 16:38] LABS: BASOPHILS 0.2 % (0-2); EOSINOPHILS 1.5 % (0-7); HEMATOCRIT 44.1 % (36.0-48.0); IMMATURE GRANULOCYTES 0.2 % (0-5); LYMPHOCYTES 16.2 % (15-50); MCH 29.3 pg (26.0-34.0); MCHC 31.7 g/dL (31.0-37.0); MCV 92.3 fL (80.0-100.0); MEAN PLATELET VOLUME 11.2 fL (7.4-10.4); MONOCYTES 4.9 % (2-11); PLATELET COUNT 342 10x3/uL (130-400); RBC 4.78 10x6/uL (4.00-5.40); RDW 13.2 % (11.5-14.5); WBC 8.1 10x3/uL (4.8-10.8)
[2019-06-06 16:43] LABS: APTT 23.5 SECONDS (22.8-39.4); INR 0.95 (0.85-1.17); PROTIME 12.1 SECONDS (11.6-15.0)
[2019-06-06 17:10] LABS: CALC OSMOLALITY 288 mosm/kg (275-300); CALCIUM 8.8 mg/dL (8.5-10.1); CARBON DIOXIDE 23.1 mmol/L (21.0-32.0); CHLORIDE - SERUM 102 mmol/L (98-107); CREATININE - SERUM 1.1 mg/dL (0.6-1.3); POTASSIUM - SERUM 3.7 mmol/L (3.5-5.1); SODIUM 138 mmol/L (136-145); UREA NITROGEN 16 mg/dL (7-18); eGFR NON AFRICAN AMERICAN 52 mL/min (90-120)
[2019-06-06 17:25] LABS: GLUCOSE 316 mg/dL (74-106)
[2019-06-06] MEDS ORDERED: LINZESS290 MCG PO (17:25)
[2019-06-06] MEDS ORDERED: HYDROCODON-ACE1 EA10 PO (17:25)
[2019-06-06 17:27] LABS: ALBUMIN 3.3 g/dL (3.4-5.0); ALKALINE PHOSPHATASE 131 U/L (46-116); ALT (SGPT) 9 U/L (10-68); BILIRUBIN - TOTAL 0.17 mg/dL (0.2-1.3); CKMB 0.2 U/L (0.0-3.6); CREATINE KINASE 31 UL (21-215); PROTEIN - SERUM 7.5 g/dL (6.4-8.2)
[2019-06-06 17:28] VITALS: BP 132/72; BMI 33.3
--- NOTE | 2019-06-06 17:30 | NUR ---
NEW PATIENT ADMIT FROM ER VIA WC ACCOMPANIED BY HOSPITAL PERSONNEL AND FAMILY MEMBERS. PATIENT TRANSFERRED TO HOSPITAL BED WITH EASE. PATIENT IS AWAKE, ALERT AND ORIENTED X 4. PATIENT DENIES ANY NEEDS OR PAIN. VSS. ASSESSMENT COMPLETED.PATIENT ORIENTED TO ROOM AND CALL LIGHT . WILL CONTINUE WITH PLAN OF CARE. SR UP X 2 BED IN LOW POSITION AND CALL LIGHT IN REACH.
[2019-06-06 17:34] LABS: TROPONIN-I < 0.017 ng/mL (0.000-0.060)
--- NOTE | 2019-06-06 19:28 | NUR ---
RECIEVED UP IN BED WITH FAMILY AT BEDSIDE. ALERT AND ORIENTED X4. UP AD KELI TO B/R.IV TO LEFT WRIST SL.. REFUSES TO EAT DINNER. STATED ' IT DOES'NT LOOK TO GOOD". OFFERED SANDWICH BOX AND EXPLAINED NPO STATUS AFTER MN. REFUSED SANDWICH BOX. DENIES ANY OTHER NEEDS.
[2019-06-06 20:00] VITALS: BP 136/62
[2019-06-06 23:00] LABS: CKMB 0.1 U/L (0.0-3.6); CREATINE KINASE 37 UL (21-215)
[2019-06-06 23:03] LABS: TROPONIN-I < 0.017 ng/mL (0.000-0.060)
--- NOTE | 2019-06-06 23:22 | NUR ---
C/O CHEST PAIN. V/S TAKEN AND WNL. CAME OUT OF THE ROOM SAYING HER CALL LIGHT WAS'NT WORKING AND SHE WAS HAVING CHEST PAIN. EKG COMPLETED. STATED SHE HAD PASSED GAS A COUPLE OF TIMES AND NOW FEELS BETTER. IN ROOM DRINKING DIET COKE AND EATING SNACKS THIS SHIFT. WHEN ASKED WHERE THE PAIN WAS SHE POINTED TO HER LEFT UPPER QUADRANT. WILL CONT TO OBSERVE FOR ANY OTHER CHEST PAINS.
[2019-06-07] VITALS: BP 168/79
[2019-06-07 04:00] VITALS: BP 138/63
[2019-06-07 04:32] LABS: BASOPHILS 0.2 % (0-2); EOSINOPHILS 2.1 % (0-7); HEMATOCRIT 43.2 % (36.0-48.0); HEMOGLOBIN 13.7 g/dL (12-16); IMMATURE GRANULOCYTES 0.2 % (0-5); LYMPHOCYTES 31.7 % (15-50); MCH 29.2 pg (26.0-34.0); MCHC 31.7 g/dL (31.0-37.0); MCV 92.1 fL (80.0-100.0); MEAN PLATELET VOLUME 10.9 fL (7.4-10.4); MONOCYTES 7.4 % (2-11); NEUTROPHILS 58.4 % (40-80); PLATELET COUNT 329 10x3/uL (130-400); RBC 4.69 10x6/uL (4.00-5.40); RDW 13.1 % (11.5-14.5); WBC 8.1 10x3/uL (4.8-10.8)
[2019-06-07 05:04] LABS: ALBUMIN 3.1 g/dL (3.4-5.0); ALKALINE PHOSPHATASE 97 U/L (46-116); ALT (SGPT) 14 U/L (10-68); CALC OSMOLALITY 283 mosm/kg (275-300); CALCIUM 8.9 mg/dL (8.5-10.1); CARBON DIOXIDE 27.4 mmol/L (21.0-32.0); CHLORIDE - SERUM 105 mmol/L (98-107); CKMB 0.3 U/L (0.0-3.6); CREATINE KINASE 28 UL (21-215); CREATININE - SERUM 0.8 mg/dL (0.6-1.3); GLUCOSE 165 mg/dL (74-106); POTASSIUM - SERUM 3.9 mmol/L (3.5-5.1); PROTEIN - SERUM 7.2 g/dL (6.4-8.2); SODIUM 140 mmol/L (136-145); TROPONIN-I < 0.017 ng/mL (0.000-0.060); UREA NITROGEN 14 mg/dL (7-18); eGFR NON AFRICAN AMERICAN 75 mL/min (90-120)
[2019-06-07 06:16] VITALS: BP 138/63
--- NOTE | 2019-06-07 07:10 | NUR ---
REPORT RECEIVED FROM MACHINE PLASTER MIXER AND PATIENT CARE ASSUMED. PATIENT LAYING IN BED ON BACK WITH EYES CLOSED AND BREATHING EVENLY. PATIENT IS NPO AWAITING DR NASSAR CONSULT. PATIENT IS STABLE AND VSS. WILL CONTINUE WITH PLAN OF CARE. SR UP X 2 BED IN LOW POSITION AND CALL LIGHT IN REACH.
[2019-06-07 08:55] VITALS: BP 124/63
[2019-06-07 09:25] VITALS: Ht 165.1 cm; Wt 90.9 kg
--- NOTE | 2019-06-07 10:15 | NUR ---
PATIENT IS STABLE AND VSS. PATIENT DENIES ANY NEEDS OR PAIN. PHONE CALL RECEIVED FROM WHARF TENDER TEAM TO PREOP PATIENT. PATIENT PREOP PER MAR. PATIENT TOLERATED WELL. AT BS. WILL CONTINUE TO MONITOR. SR UP X 2 BED IN LOW POSITION AND CALL LIGHT IN REACH.
--- NOTE | 2019-06-07 11:00 | NUR ---
PATIENT IS STABLE AND VSS. PATIENT DENIES ANY NEEDS OR PAIN. PATIENT TO COTTON EXPERT VIA HOPSITAL BED AND COTTON EXPERT TEAM.
--- NOTE | 2019-06-07 12:08 | HP ---
PATIENT: KALEB PATINO MEDICAL RECORD: [id number] ACCOUNT: [id number] LOCATION:[address] : [birth year] ADMISSION DATE: 06/06/19 PCP: LE POTTER MD HISTORY AND PHYSICAL EXAMINATION DIAGNOSES: 1. Unstable angina. 2. Coronary artery disease. 3. Previous multivessel percutaneous transluminal coronary angioplasty stent. 4. Hypertension. 5. Hyperlipidemia. 6. Smoking. HISTORY OF PRESENT ILLNESS: Mrs. Patino presents with unstable angina. Last cardiac intervention was in April. She did well until yesterday. She had severe chest discomfort associated with diaphoresis, radiation to her left arm just like that of her previous myocardial infarction. She had multiple episodes of this. She finally came to the hospital. She has had more episodes this morning. Her EKG is with no acute ST-T abnormalities. She has multivessel percutaneous transluminal coronary angioplasty stent. With review of her cardiac catheterization film, she has hemodynamically significant disease of all 3 vessels. Last cardiac intervention was the worst of this, which was a circumflex. PHYSICAL EXAMINATION: CONSTITUTIONAL/GENERAL APPEARANCE: Well nourished, well developed, appears stated age. EYES: Lids and conjunctivae noninjected. No discharge. No pallor. ENT: Lips within normal limit. No cyanosis. No pallor. NECK: Carotid arteries, bilateral normal upstroke. No bruits. No thrills. No jugular venous pressure or distention. CERVICAL LYMPH NODES: Nontender. Nonenlarged. THYROID: Not enlarged. No nodules. CARDIOVASCULAR: Precordial exam, nondisplaced. No heaves or pericardial thrills. Rate and rhythm, regular. Heart sounds, normal S1, normal S2. No S3, no gallop, no rub. Systolic murmur, not heard. Diastolic murmur, not heard. RESPIRATORY: Respiratory effort, unlabored. Normal curvature. No thoracic deformity. No chest wall tenderness. Percussion, resonant. Auscultation, clear. No wheezes, no rales, no rhonchi. ABDOMEN: Soft, nondistended, nontender. No abdominal pain, no vomiting and normal appetite. MUSCULOSKELETAL: No joint tenderness, normal gait, normal tone. SKIN: Warm and dry. OVERALL IMPRESSION: Unstable angina with continued chest pain just like that of her previous angina with diaphoresis, shortness of breath. We will proceed with repeat coronary angiography. Further care depends upon findings of the angiography. TRANSINT:[id number] Voice Confirmation ID: [id number] DOCUMENT ID: [id number] HISTORY AND PHYSICAL [id number] KALEB PATINO JEFFREY MD at 1208 CC: [id number] DICTATION DATE: 06/07/19925 AGING ROOM HAND: 06/07/19 1058 ADM IN [address] [place] [address]
--- NOTE | 2019-06-07 12:15 | NUR ---
PATIENT RETURNED FROM MICROPHONE BOOM OPERATOR. PATIENT HAD STENT PLACED TO RT LAD VIA RT GROIN. PATIENT LAYING IN BED ON BACK NFLAT WITH LAURA LL STRAIGHT. DRSG TO RT GROIN C/D/I. PATIENT HAS EYES CLOSED AND BREATHING EVENLY. PATIENT AROUSES TO VOICE EASILY. PATIENT IS STABLE AND VSS. PATIENT DENIES ANY NEEDS OR PAIN. FREQUENT VITALS STARTED. FAMILY AT BS. SR UP X 2 BED IN LOW POSITION AND CALL LIGHT IN REACH.
[2019-06-07 13:48] VITALS: BP 149/73
--- NOTE | 2019-06-07 15:24 | NUR ---
PATIENT CONTINUES TO LAY FLAT WITH LAURA LEGS STRAIGHT. NO SIGNS OF BLEEDING BRUISING OR HEMATOMA TO RT GROIN. DRSG C/D/I. PATIENT IS STABLE AND VSS. PATIENT DENIES ANY NEEDS OR PAIN. WILL CONTINUE WITH PLAN OF CARE SR UPX 2 BED IN LOW POSITION AND CALL LIGHT ION REACH.
--- NOTE | 2019-06-07 15:28 | OP ---
PATIENT NAME: KALEB TERRAZAS MEDICAL RECORD: [id number] :48 LOCATION:D.M2 D.0 ADMISSION DATE:06/06/19 SURGEON: BERNARDA NASSAR MD DATE OF OPERATION: 06/07/2019 DATE OF SERVICE: 06/07/2019 PROCEDURES: 1. Laser atherectomy, PTCA stent LAD. 2. Left heart catheterization. 3. Selective coronary angiography. 4. Left ventriculogram. INDICATION: Angina and coronary artery disease. PROCEDURE IN DETAIL: After informed consent was obtained and after a detailed description of risks, benefits as well as alternative therapies, the patient elected to proceed with angiogram and angioplasty. The right femoral area was prepped and draped in normal sterile fashion. Right femoral artery was cannulated via modified Seldinger technique with placement of 6-Filipino sheath. All catheters exchanged through this sheath. FINDINGS: Left ventriculogram was performed in standard 30-degree BARR view, reveals good cardiac wall motion, ejection fraction estimated at 60%. SELECTIVE CORONARY ANGIOGRAPHY: 1. Left main is with no significant angiographic disease. 2. Left anterior descending has previously placed stent. There is 70% stenosis in the proximal to the previously placed stent and just in the previously placed stent. IFR was abnormal at 0.86. 3. Left circumflex has previously placed stent. This is widely patent. 4. Right coronary has moderate irregularities, but no flow-limiting stenosis. PTCA STENT LASER ATHERECTOMY OF THE LAD: A 0.9 laser catheter was used. Multiple passes were made at 80/40. Stenting was undertaken with a 3.0 x 22 Vicente. Result was 0% residual stenosis. IFR normalized to 1.0. OVERALL IMPRESSION: Successful percutaneous transluminal coronary angioplasty stent of the left anterior descending going from 70% initial stenosis with abnormal IFR of 0.86 to 0% residual stenosis and normalization of the IFR after the intervention to 1.0. TRANSINT:[id number] Voice Confirmation ID: [id number] DOCUMENT ID: [id number] BERNARDA NASSAR MD at 1528 CC: [id number] DICTATION DATE: 06/07/19 1207 HEART COORDINATOR: 06/07/19 1221 [place] [address]
--- NOTE | 2019-06-07 16:15 | NUR ---
PATIENT IS STABLE AND VSS. RT GROIN DRSG C/D/I/. NO SIGNS OF BLEEDING BRUISING OR HEMATOMA. PATIENT DENIES ANY NEEDS OR PAIN. ORDERS RECEIVED FOR DC. WRITTEN AND VERBAL ORDERS GIVEN TO PATIENT AND SPOUSE. PATIENT VERBALIZED UNDERSTANDING AND SIGNED PAPERWORK. IV DCD WITHOUT DIFFICULTY WITH ENTIRE CATHETER INTACT ANDPRESSURE BANDAGE APPLIED. PATIENT IN WC TO FRONT DOOR TO PRIVATE VEHICLE DRIVEN BY SPOUSE. PATIENT IS DCD TO HOME FOR SELF CARE.
[2019-06-07 16:42] VITALS: BP 143/73
== END 2019-06-07 16:15 | disposition home or self-care (01) ==
LOC: D.ER 15:33 → D.M2 16:10 → OBSVTIME 16:40 → D.SDCHOLD 06-07 10:27 → D.M2 06-07 10:28
PROVIDERS: Family Medicine; ADMIT Internal Medicine Interventional Cardiology; ATTEND Internal Medicine Interventional Cardiology
DX: I25.110 Atherosclerotic heart disease of native coronary artery with unstable angina pectoris (principal); I11.0 Hypertensive heart disease with heart failure; I50.9 Heart failure, unspecified; E11.9 Type 2 diabetes mellitus without complications; E78.5 Hyperlipidemia, unspecified; F17.200 Nicotine dependence, unspecified, uncomplicated
CPT/HCPCS: 93458; C9602; 93571

== ENCOUNTER → 2019-06-28 09:00 | Outpatient (CLI) | payer MEDICARE, MEDICAID ==
[2019-06-07 09:25] VITALS: BMI 33.3
[~2019-06-28 09:00] MED LIST changes: +HYDROCODON-ACE1 EA10 PO; +LINZESS290 MCG PO
== END | disposition home or self-care (01) ==
LOC: D.MAMMO 06-10 11:45
PROVIDERS: ATTEND Emergency Medicine
DX: Z12.31 Encounter for screening mammogram for malignant neoplasm of breast (principal)

== ENCOUNTER 2019-07-12 15:47 | Observation (INO) | payer MEDICARE, MEDICAID ==
[~2019-07-12] VITALS: Ht 165.1 cm; Wt 96.6 kg
[2019-07-12 16:01] LABS: BASOPHILS 0.2 % (0-2); EOSINOPHILS 2.7 % (0-7); HEMATOCRIT 42.8 % (36.0-48.0); IMMATURE GRANULOCYTES 0.5 % (0-5); MCH 29.5 pg (26.0-34.0); MCHC 32.7 g/dL (31.0-37.0); MCV 90.3 fL (80.0-100.0); MEAN PLATELET VOLUME 10.5 fL (7.4-10.4); MONOCYTES 6.4 % (2-11); NEUTROPHILS 59.2 % (40-80); PLATELET COUNT 339 10x3/uL (130-400); RBC 4.74 10x6/uL (4.00-5.40); WBC 9.2 10x3/uL (4.8-10.8)
[2019-07-12 16:17] LABS: APTT 22.3 SECONDS (22.8-39.4); INR 0.94 (0.85-1.17); PROTIME 12.1 SECONDS (11.6-15.0)
[2019-07-12 16:25] LABS: CALC OSMOLALITY 282 mosm/kg (275-300); CALCIUM 8.8 mg/dL (8.5-10.1); CARBON DIOXIDE 23.8 mmol/L (21.0-32.0); CHLORIDE - SERUM 101 mmol/L (98-107); CREATININE - SERUM 0.8 mg/dL (0.6-1.3); GLUCOSE 256 mg/dL (74-106); POTASSIUM - SERUM 4.2 mmol/L (3.5-5.1); SODIUM 136 mmol/L (136-145); UREA NITROGEN 19 mg/dL (7-18); eGFR NON AFRICAN AMERICAN 75 mL/min (90-120)
[2019-07-12 16:43] LABS: ALBUMIN 3.2 g/dL (3.4-5.0); ALKALINE PHOSPHATASE 137 U/L (46-116); ALT (SGPT) 15 U/L (10-68); CKMB 0.1 U/L (0.0-3.6); CREATINE KINASE 28 UL (21-215); MAGNESIUM - SERUM 1.8 mg/dL (1.8-2.4); TROPONIN-I < 0.017 ng/mL (0.000-0.060)
[2019-07-12 17:49] VITALS: BP 154/62
[2019-07-12 19:27] VITALS: BP 154/62
--- NOTE | 2019-07-12 21:00 | NUR ---
PT ON ROOM. FAMILY AT BESIDE. RR EVEN AND UNALBORED. NO S/SX OF DISTRESS OBSERVED. NO VOICED C/O OR CONCERNS. CALL LIGHT IN REACH. WILL CTM.
--- NOTE | 2019-07-12 22:00 | NUR ---
RECEIVED ORDER TO D/C MORPHINE PER PTS ALLERGY LIST.
[2019-07-12 22:52] LABS: CKMB 0.3 U/L (0.0-3.6); CREATINE KINASE 17 UL (21-215); TROPONIN-I < 0.017 ng/mL (0.000-0.060)
[2019-07-13] VITALS: BP 143/72
[2019-07-13 00:14] VITALS: BP 138/72; BMI 35.5
--- NOTE | 2019-07-13 00:30 | NUR ---
NO VOICED C/O OR CONCERNS NOTED DURING THE NIGHT. WILL CTM.
[2019-07-13 04:00] VITALS: BP 119/52
[2019-07-13 05:11] LABS: BASOPHILS 0.3 % (0-2); EOSINOPHILS 2.1 % (0-7); HEMATOCRIT 39.5 % (36.0-48.0); HEMOGLOBIN 12.6 g/dL (12-16); IMMATURE GRANULOCYTES 0.4 % (0-5); LYMPHOCYTES 34.5 % (15-50); MCH 28.9 pg (26.0-34.0); MCHC 31.9 g/dL (31.0-37.0); MCV 90.6 fL (80.0-100.0); MEAN PLATELET VOLUME 10.7 fL (7.4-10.4); MONOCYTES 6.4 % (2-11); NEUTROPHILS 56.3 % (40-80); PLATELET COUNT 316 10x3/uL (130-400); RBC 4.36 10x6/uL (4.00-5.40); RDW 13.2 % (11.5-14.5); WBC 11.3 10x3/uL (4.8-10.8)
[2019-07-13 05:45] LABS: ALBUMIN 2.8 g/dL (3.4-5.0); ALKALINE PHOSPHATASE 113 U/L (46-116); BILIRUBIN - TOTAL 0.12 mg/dL (0.2-1.3); CALC OSMOLALITY 287 mosm/kg (275-300); CALCIUM 8.5 mg/dL (8.5-10.1); CARBON DIOXIDE 26.1 mmol/L (21.0-32.0); CHLORIDE - SERUM 103 mmol/L (98-107); CKMB 0.3 U/L (0.0-3.6); CREATINE KINASE 17 UL (21-215); CREATININE - SERUM 0.8 mg/dL (0.6-1.3); GLUCOSE 272 mg/dL (74-106); PROTEIN - SERUM 6.3 g/dL (6.4-8.2); SODIUM 138 mmol/L (136-145); THYROID STIMULATING HORMONE 0.15 uIU/mL (0.36-3.74); TROPONIN-I < 0.017 ng/mL (0.000-0.060); UREA NITROGEN 17 mg/dL (7-18); eGFR NON AFRICAN AMERICAN 75 mL/min (90-120)
[2019-07-13 05:51] LABS: ALT (SGPT) 7 U/L (10-68)
[2019-07-13 07:56] VITALS: BP 113/55
[2019-07-13 09:02] VITALS: Ht 165.1 cm; Wt 96.6 kg
[2019-07-13 11:19] VITALS: BP 145/59
[2019-07-13 11:52] LABS: CKMB 0.3 U/L (0.0-3.6); CREATINE KINASE 26 UL (21-215)
[2019-07-13 11:53] LABS: TROPONIN-I < 0.017 ng/mL (0.000-0.060)
[2019-07-13] MEDS ORDERED: ZOVIRAX800 MG PO (14:17)
--- NOTE | 2019-07-13 14:53 | NUR ---
PT STATES SHE HAS HAD FLU AND PNEUMONIA SHOTS THIS YEAR.
--- NOTE | 2019-07-13 14:56 | NUR ---
PT INFORMED OF DC ORDER. IV REMOVED. STATES HER RIDE WONT BE HERE TO AFTER SUPPER. TEST DESKMAN NOTIFIED.
--- NOTE | 2019-07-13 16:37 | NUR ---
PT BEING DISCHARGED. INSTRUCTIONS REVIEWED. TELEMETRY REMOVED. PT'S RIDE IN ROOM, WILL CALL WHEN DRESSED.
== END 2019-07-13 16:55 | disposition home or self-care (01) ==
LOC: D.ER 15:47 → D.M2 18:21 → OBSVTIME 19:00 → D.ER 19:57 → D.M2 07-13 16:55
PROVIDERS: Family Medicine; ADMIT Family Medicine; ATTEND Family Medicine
DX: R07.9 Chest pain, unspecified (principal); E11.9 Type 2 diabetes mellitus without complications; E03.9 Hypothyroidism, unspecified; K21.9 Gastro-esophageal reflux disease without esophagitis; K27.9 Peptic ulcer, site unspecified, unspecified as acute or chronic, without hemorrhage or perforation; M19.90 Unspecified osteoarthritis, unspecified site; B02.9 Zoster without complications; I25.110 Atherosclerotic heart disease of native coronary artery with unstable angina pectoris

== ENCOUNTER 2019-08-30 18:07 | Emergency (ER) | payer MEDICARE, MEDICAID ==
[~2019-08-30] VITALS: Ht 165.1 cm; Wt 96.4 kg
[~2019-08-30 18:07] MED LIST changes: +ZOVIRAX800 MG PO
[2019-08-30 18:17] VITALS: Ht 165.1 cm; Wt 96.4 kg
[2019-08-30 18:55] LABS: BASOPHILS 0.4 % (0-2); EOSINOPHILS 2.6 % (0-7); HEMATOCRIT 42.2 % (36.0-48.0); HEMOGLOBIN 13.5 g/dL (12-16); IMMATURE GRANULOCYTES 0.4 % (0-5); LYMPHOCYTES 33.3 % (15-50); MCH 29.3 pg (26.0-34.0); MCV 91.7 fL (80.0-100.0); MEAN PLATELET VOLUME 10.5 fL (7.4-10.4); MONOCYTES 7.2 % (2-11); NEUTROPHILS 56.1 % (40-80); PLATELET COUNT 326 10x3/uL (130-400); RDW 14.1 % (11.5-14.5); WBC 8.1 10x3/uL (4.8-10.8)
[2019-08-30 19:00] LABS: INR 1.01 (0.85-1.17); PROTIME 13.3 SECONDS (11.6-15.0)
[2019-08-30 19:06] LABS: ANION GAP 13.7 mmol/L (8-16); CALCIUM 8.9 mg/dL (8.5-10.1); CARBON DIOXIDE 24.1 mmol/L (21.0-32.0); CREATININE - SERUM 0.9 mg/dL (0.6-1.3); POTASSIUM - SERUM 3.8 mmol/L (3.5-5.1)
[2019-08-30 19:10] LABS: ALBUMIN 3.3 g/dL (3.4-5.0); BILIRUBIN - TOTAL 0.27 mg/dL (0.2-1.3); PROTEIN - SERUM 7.4 g/dL (6.4-8.2)
[2019-08-30] MEDS ORDERED: CYCLOBENZAPRINE10 MG PO (19:56)
[2019-08-30 20:35] VITALS: BP 149/78
== END 2019-08-30 20:35 | disposition home or self-care (01) ==
LOC: D.ER 18:07
PROVIDERS: Family Medicine
DX: R10.12 Left upper quadrant pain (principal); M25.50 Pain in unspecified joint; M79.10 Myalgia, unspecified site; V89.2XXA Person injured in unspecified motor-vehicle accident, traffic, initial encounter; Y93.9 Activity, unspecified; Y92.9 Unspecified place or not applicable; E11.9 Type 2 diabetes mellitus without complications; I10 Essential (primary) hypertension; E07.9 Disorder of thyroid, unspecified; Z79.84 Long term (current) use of oral hypoglycemic drugs

== ENCOUNTER → 2020-04-09 09:55 | Outpatient (CLI) | payer MEDICARE, MEDICAID ==
[~2020-04-09 09:55] MED LIST changes: +CYCLOBENZAPRINE10 MG PO; +LISINOPRIL-HCT1 EAC7 PO; +TRESIBA FL100 UNIT/1 SC; +ZOFRAN4 MG PO; +[UNRECOGNIZED DRUG - REMARK]
== END | disposition home or self-care (01) ==
LOC: D.HCCARDIO 09:55
PROVIDERS: ATTEND Internal Medicine Cardiovascular Disease
DX: I25.10 Atherosclerotic heart disease of native coronary artery without angina pectoris (principal)